=== PATIENT | female | born 1990 | race Caucasian/White ===

== ENCOUNTER 2023-09-08 11:10 | Emergency (ER) | payer OTHER, SELFPAY ==
[2023-09-08 11:15] VITALS: BP 143/95; RESP 18; TEMP 36.6; O2SAT 99; BMI 22.4
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
[2023-09-08] MEDS: IBUPROFEN 600 MG TABLET PO (12:17)
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
== END 2023-09-08 13:06 | disposition home or self-care (01) ==
PROVIDERS: Emergency Provider Emergency Medicine; PCP Family Medicine
DX: S42.191A Fracture of other part of scapula, right shoulder, initial encounter for closed fracture (principal); M25.511 Pain in right shoulder; V48.5XXA Car driver injured in noncollision transport accident in traffic accident, initial encounter
CPT/HCPCS: 73010; 73030; 99283

== ENCOUNTER 2024-05-22 11:23 | Outpatient (OUT) | payer OTHER, SELFPAY ==
--- OUTSIDE RECORDS SUMMARY | 2024-05-22 11:27 | XMS_ITS | CCD ---
Author Organization [facility] Inform ion Partnership [facility] Care Team Providers Care Drying Frame Operator Name Role Phone ELBA AZUL (FEL) Unavailable Unavailable IZABEL LOZANO, REVITAL Unavailable UnaAKASH Castorena Unavailable Unavailable TATIANA PINK Unavailable Unavailable AKASH VALENCIA Unavailable Unavailable GEMA VALENCIAENCE M Unavailable Unavailable NGUYỄN HOLLINS Unavailable Unavailable SKYLER FLOR Unavailable Unavailab AKASH Anderson Unavailable Unavailable AKASH VALENCIA M Unavailable Unavailable TATIANA PINK Unavailable Unavailable ERIKA ., DR SIMPSON Admitting Unavailable ERIKA ., DR SIMPSON Attending Unavailable ERIKA ., DR SIMPSON Primary Care Unavailable ERIKA ., DR SIMPSON Consulting Unavailable ALFRED ., DR PERALTA Admitting Unavailable ALFRED ., DR PERALTA Attending Unavailable ERIKA ., DR SIMPSON Primary Care Unavailable ALFRED ., DR PERALTA Consulting Unavailable Debbie Le Unavailable Tatiana Pink Primary Care Unavailable Yordan Garcia Attending Unavailable Yordan Garcia Admitting Unavailable Alonzo Castañeda Admitting Unavailable Alonzo Castañeda Attending Unavailable TATIANA PINK Primary Care Unavailable Medications Current Medications Medication Drug Class(es) Dates Sig (Normalized) Sig (Original) insulin degludec (1 source) Insulin Analog Tresiba Active 3 ml insulin lispro 100 unt/ml pen injector (1 source) Insulin Analog HumaLOG KwikPen 100 UNIT/ML ICR 1:5 plus ISS up to 1:25-20-15 Subcutaneous qid Active Ketorolac (1 source) Nonsteroidal Anti-inflammatory Drug, Cyclooxygenase Inhibitor Start: 11-18-2019 Toradol per 15 mg October, 30 mg Completed/Discontinued Medications Medication Drug Class(es) Dates Sig (Normalized) Sig (Original) cyclobenzaprine hydrochloride 10 mg oral tablet (1 source) Muscle Relaxant Start: 11-18-2019 take 1 tablet by mouth every eight hours Cyclobenzaprine HCl 10 MG 1 tablet as needed Orally Three times a day for 7 days October, Not-Taking methylPREDNISolone 4 mg oral tablet (1 source) Corticosteroid Start: 11-18-2019 Medrol 4 MG as directed Orally for 6 days October, Not-Taking triamcinolone acetonide 40 mg/ml injectable suspension (2 sources) Corticosteroid Start: 11-19-2022 Kenalog-40 October, 80 mg Start: 11-18-2019 KENALOG - 10 m g October, 40 mg Problems Active Problems Problem Classification Problem Date Documented Da te Episodic/Chronic Diabetes mellitus with complications (2 sources) Type 1 diabetes mellitus with hyperglycemia; Translations: [Disorder due to type 1 diabetes mellitus] Onset: 05-06-2017 Chronic Diabetes mellitus with complications (1 source) Diabetes mellitus with complications; Translations: [Type 1 diabetes mellitus with hypoglycemia without coma] Onset: 03-09-2023 Diabetes mellitus without complication (1 source) Type 1 diabetes mellitus without complications; Translations: [TYPE 1 DM WITHOUT COMPLICATIONS] Onset: 09-27-2022 Chronic Diabetes or abnormal glucose tolerance complicating ; childbirth; or the puerperium (1 source) Pre-existing type 1 diabetes mellitus, in , first trimester; Translations: [Pre-existing diabetes mellitus, type 1, in , first trimester] Chronic Nutritional deficiencies (1 source) Vitamin D deficiency; Translations: [Vitamin D deficiency, unspecified] Chronic Other aftercare (1 source) Long-term current use of insulin; 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] Episodic Other upper respiratory disease (1 source) Allergy to pollen; Translations: [Allergic rhinitis due to pollen] Chronic Other upper respiratory disease (1 source) Allergic rhinitis due to pollen Chronic Thyroid disorders (2 sources) Thyrotoxicosis, unspecified without thyrotoxic crisis or storm; Translations: [Thyrotoxicosis, unspecified without thyrotoxic crisis or storm] Onset: 05-06-2017 Chronic Past or Other Problems Problem Classification Problem Date Documented Date Episodic/Chronic Fracture of upper limb (3 sources) Displaced fracture of neck of second metacarpal bone, left hand, initial encounter for open fracture; Translations: [Fracture of unspecified phalanx of left thumb, initial encounter for open fracture] Onset: 08-06-2017 Episodic Immunizations and screening for infectious disease (1 source) Encounter for screening for human papillomavirus (HPV); Translations: [ENC SCREENING HUMAN PAPILLOMAVIRUS] Onset: 10-11-2021 Episodic Open wounds of extremities (3 sources) Unspecified open wound of left hand, initial encounter; Translations: [Laceration of intrinsic muscle, fascia and tendon of left thumb at wrist and hand level, initial encounter] Onset: 08-06-2017 Episodic Other injuries and conditions due to external causes (1 source) Unspecified injury of unspecified muscle, fascia and tendon at wrist and hand level, left hand, initial encounter; Translations: [Unspecified injury of unspecified muscle, fascia and tendon at wrist and hand level, left hand, initial encounter] Onset: 08-06-2017 Episodic Other nervous system disorders (1 source) Other acute postprocedural pain; Translations: [Other acute postprocedural pain] Onset: 08-06-2017 Episodic Other screening for suspected conditions (not mental disorders or infectious disease) (4 sources) Encounter for screening for malignant neoplasm of cervix; Translations: [ENC SCREENING MALIG NEOPLASM CERV] Onset: 10-10-2021 Episodic Results Test Name Value Interpretation Reference Range Facility Consent Formson 09-03-2023 Consent Forms [id number] [facility] Lab - Toxicology Resultson 0 09-03-2023 Lab - Toxicology Results [id number] F [facility] ED Clinical Summaryon 2023 ED Clinical Summary [facility] ? Urgent Care [address] [place] [id number] Clinical Summary PERSON INFORMATION Name: JULISA FREED Age: 33 Years Sex: FEMALE : 1990 MRN: Acct#: Visit Reason: Medical screening exam; [employer] [facility] Arrival: 09/02/2023 12:04:54 Discharge: 09/02/2023 13:05:00 LOS: 000 01:01 Check In: 09/02/2023 12:04:54 Checkout: 09/02/2023 13:05:00 Address: [address] [place] [address] [address] [facility] [address] PCP: TATIANA PINK PROVIDER INFORMATION Provider Role Assigned Unassigned Alonzo Castañeda PA-C ED PA 09/02/2023 12:12:17 Lainey RN, Yanelis ED Nurse 09/02/2023 12:28:43 VITALS INFORMATION Vital Sign Triage Latest Temperature Tympanic Temperature Temporal Artery Pulse Rate O2 Sat 98 % 98 % Respiratory Rate Blood Pressure /78 mmHg /78 mmHg MEDICAL INFORMATION Medications Given: Allergy Information: No known allergies PHYSICIAN DOCUMENTATION DISCHARGE INFORMATION: Discharge Disposition: Home Discharge Location: Home PATIENT EDUCATION INFORMATION Instructions: Follow-Up: DIAGNOSIS: Patient Understands: Yes - Patient/family/caregiver verbalizes understanding of instructions given Comment: Normal [facility] ED Patient Summaryon 024 ED Patient Summary [facility] ? Urgent Care [address] [place] [id number] PATIENT DISCHARGE INSTRUCTIONS Patient Information Name: JULISA FREED Age: 33 Years Date of : 1990 Reason For Visit: Medical screening exam; [facility] [facility] Arrival Time: 09/02/2023 12:04:54 Primary Care Physician: TATIANA PINK Attending Physician: Alonzo Castañeda PA-C Comment: Patient Education Medication Information: The exam and treatment you received today in the [facility] Emergency Department were for an urgent problem and are not intended as complete care. It is important for you to follow up with a doctor, nurse practitioner, or physician?s cable splicer assistant for ongoing care. If your symptoms become worse or you do not improve as expected and you are unable to reach your usual health care provider, you should return to the Emergency Department, we are available 24 hours a day. For those patients who have received Radiology results, the interpretation of your X-ray as given to you by our Emergency Department physician is only a preliminary report. The Radiologist will review your films and if there is a change in the diagnosis you will be notified by phone. Please make sure you have provided a working phone number so we can reach you if necessary. In the event that you had a lab culture while you were a patient in the Emergency Department, you will be notified by phone if there is a need to change your antibiotic. Please make sure you have provided a working phone number so we can reach you if necessary. [facility] Emergency Department has provided you with a complete list of medications post discharge. Please inform your american history professor/provider of your visit and for further instruction on these medications. Any specific questions regarding your chronic medications and dosages should be discussed with your primary care physician(s) and/or pharmacist. Medications to Continue That Have Not Changed Other Medications insulin degludec (Tresiba FlexTouch 100 units/mL subcutaneous solution) 34 unit(s) Subcutaneous (under the skin) every day. Visit Information Visit Diagnosis: Diagnoses This Visit Medical screening exam ([id number]) If you received any narcotics, sedation, or any other medication that causes drowsiness for the next 24 hours, unless otherwise directed: ? Do not drive a car. ? Do not operate machinery such as power tools, lawn mowers, drills, sewing machines, or stoves ? Avoid alcoholic beverages and drugs for allergies, nerves, or sleep ? Do not make important personal or business decisions or sign any legal documents Reason for Visit: Medical screening exam- pre employment physical [employer] Allergies: Substance Reaction Symptoms Type Comments No known allergies Drug Vital Signs: Vitals and Measurements this Visit (last charted value for your 09/02/2023 visit) Vital Signs This Visit Temperature Temporal: 36.4 DegC Peripheral Pulse Rate: 90 bpm Respiratory Rate: 18 br/min Systolic Blood Pressure: 120 mmHg Diastolic Blood Pressure: 78 mmHg SpO2: 98 % Blood Pressure Method: Automatic Measurements This Visit Height/Length Measured: 152.4 cm Weight Measured: 53.52 kg Weight Dosin.520 kg Body Mass Index: 23.04 kg/m2 BSA Measured: 1.51 m2 Problems List: Problem Onset Comments Diabetes Major Tests and Procedures: The following procedures and tests were performed during your ED visit. Laboratory Triage Panel 10 Urine, Collected, RT collect, 09/02/23 13:25:00 EDT, by ANA, Stop date 09/02/23 13:25:00 EDT, Lab Collect, Urine Radiology Cardiology Viruses or Bacteria What?s got you sick? Antibiotics only treat bacterial infections. Viral illnesses cannot be treated with antibiotics. When an antibiotic is not prescribed, ask your healthcare professional for tips on how to relieve symptoms and feel better. Usual Cause Illness Viruses Bacteria Antibiotic Needed Cold/Runny Nose NO Bronchitis/Chest Cold (in otherwise healthy children and adults) NO Whooping Cough Yes Flu NO Strep Throat Yes Sore Throat (except strep) NO Fluid in the middle ear (otitis media with effusion) NO Urinary Tract Infection Yes Antibiotics Aren?t Always the Answer www.cdc.gov/getsmart GET SMART Know When Antibiotics Work U.S. Department of Health and Human Services Centers for Disease Control and Prevention February 2014 [facility] Triage Panel 10on 09-02-2023 Drug Screen Complete Collected [facility] Comment on above: Performed By: #### 2 [id number] #### [facility] (DEFAULT) [address] [place] [address] Urgent Care Note- Provideron 09-02-2023 Urgent Care Note- Provider Patient: JULISA FREED Age: 33 years Sex: FEMALE : 1990 Associated Diagnoses: None Author: Alonzo Castañeda PA-C Basic Information Additional information: Chief Complaint from Nursing Triage Note : Chief Complaint 09/02/2023 12:20 EDT Chief Complaint Medical screening exam- pre employment physical [employer] . History of Present Illness Patient presents for a pre-employment physical. She is cleared for work. Exam is normal. See scanned document. GENERAL: Awake, alert and oriented to person, place and situation. Well nourished, well developed, non toxic, NAD. Moves around the department freely. EYES: Pupils equal, round and react to light. EOMI. ENMT: Ears: TM's and external canals with normal inspection bilaterally. Nose: normal inspection. Mouth: oral mucosa is pink and still moist. Throat: normal inspection. NECK: No bony TTP, normal range of motion, no meningismus, trachea is midline. No anterior or posterior lymphadenopathy. CARDIOVASCULAR: Regular rate and rhythm. +S1 +S2. No murmurs or rubs. RESPIRATORY: Clear to auscultation bilaterally without rales, rhonchi or wheeze. ABDOMEN: Soft, completely non tender, abdomen is non distended, without rebound tenderness, guarding or peritoneal signs. Bowel sounds present times 4 quadrants and normoactive. No bruits. No masses. No CVA TTP. BACK: There is no bony TTP, no scoliosis, full ROM without difficulty. EXTREMITIES: Does not have full flexion function of left index and thumb. Otherwise no cyanosis, clubbing or edema and good muscle tone, moves all other extremities fully. Squat normal. SKIN: Normal inspection, no visualized rash. NEUROLOGIC: Light touch sensation in tact, strength 5/5 in bilateral upper and lower extremities. Normal reflexes. Steady gait. Normal mentation. No focal neurological deficits appreciated. PSYCHIATRIC: Mood and affect appropriate. Health Status Allergies: Allergic Reactions (Selected) No known allergies. Medications: (Selected) Documented Medications Documented Tresiba FlexTouch 100 units/mL subcutaneous solution: 34 unit(s), Subcutaneous, Daily, 0 Refill(s). Past Medical/ Family/ Social History Medical history: No active or resolved past medical history items have been selected or recorded.. Surgical history: No active procedure history items have been selected or recorded.. Family history: No family history items have been selected or recorded.. Social history: Social & Psychosocial Habits Substance Use 09/02/2023 Substance use: Never Tobacco 09/02/2023 Smoking tobacco use: Never tobacco user Electronic Cigarette/Vaping 09/02/2023 Electronic Cigarette Use: Never . Problem list: Active Problems (1) Diabetes . Physical Examination Vital Signs Vital Signs 09/02/2023 12:20 EDT Temperature Temporal 36.4 DegC Peripheral Pulse Rate 90 bpm Respiratory Rate 18 br/min Systolic Blood Pressure 120 mmHg Diastolic Blood Pressure 78 mmHg SpO2 98 % BP Method Automatic . Measurements 09/02/2023 12:20 EDT Height 152.4 cm Weight 53.52 kg Weight Dosing 53.520 kg Body Mass Index Measured 23.04 kg/m2 BSA Measured 1.51 m2 . [Electronically Signed on: 09/02/2023 13:01 EDT] Alonzo Castañeda PA-C [Verified on: 09/02/2023 13:01 EDT] Alonzo Castañeda PA-C Normal [facility] Urgent Care [place] 024 Urgent Care Record [facility] ? Urgent Care [address] [place], [place] [id number] PATIENT DISCHARGE INSTRUCTIONS Patient Information Name: JULISA FREED Age: 33 Years Date of : 1990 Reason For Visit: Medical screening exam; [facility] [facility] Arrival Time: 09/02/2023 12:04:54 Primary Care Physician: TATIANA PINK Attending Physician: Alonzo Castañeda PA-C Comment: Visit Diagnosis: Diagnoses This Visit Medical screening exam ([id number]) If you received any narcotics, sedation, or any other medication that causes drowsiness for the next 24 hours, unless otherwise directed: ? Do not drive a car. ? Do not operate machinery such as power tools, lawn mowers, drills, sewing machines, or stoves ? Avoid alcoholic beverages and drugs for allergies, nerves, or sleep ? Do not make important personal or business decisions or sign any legal documents Medication Information: The exam and treatment you received today in the [facility] Urgent Care were for an urgent problem and are not intended as complete care. It is important for you to follow up with a doctor, nurse practitioner, or physician?s cable splicer assistant for ongoing care. If your symptoms become worse or you do not improve as expected and you are unable to reach your usual health care provider, you should return to the Emergency Department, we are available 24 hours a day. For those patients who have received Radiology results, the interpretation of your X-ray as given to you by our Urgent Care physician is only a preliminary report. The Radiologist will review your films and if there is a change in the diagnosis you will be notified by phone. Please make sure you have provided a working phone number so we can reach you if necessary. In the event that you had a lab culture while you were a patient in the Urgent Care, you will be notified by phone if there is a need to change your antibiotic. Please make sure you have provided a working phone number so we can reach you if necessary. [facility] Urgent Care has provided you with a complete list of medications post discharge. Please inform your american history professor/provider of your visit and for further instruction on these medications. Any specific questions regarding your chronic medications and dosages should be discussed with your primary care physician(s) and/or pharmacist. Medications to Continue That Have Not Changed Other Medications insulin degludec (Tresiba FlexTouch 100 units/mL subcutaneous solution) 34 unit(s) Subcutaneous (under the skin) every day. Visit Information Allergies: Substance Reaction Symptoms Type Comments No known allergies Drug Vital Signs: Vitals and Measurements this Visit (last charted value for your 09/02/2023 visit) Vital Signs This Visit Temperature Temporal: 36.4 DegC Peripheral Pulse Rate: 90 bpm Respiratory Rate: 18 br/min Systolic Blood Pressure: 120 mmHg Diastolic Blood Pressure: 78 mmHg SpO2: 98 % Blood Pressure Method: Automatic Measurements This Visit Height/Length Measured: 152.4 cm Weight Measured: 53.52 kg Weight Dosin.520 kg Body Mass Index: 23.04 kg/m2 BSA Measured: 1.51 m2 Problems List: Problem Onset Comments Diabetes Patient Education Viruses or Bacteria What?s got you sick? Antibiotics only treat bacterial infections. Viral illnesses cannot be treated with antibiotics. When an antibiotic is not prescribed, ask your healthcare professional for tips on how to relieve symptoms and feel better. Usual Cause Illness Viruses Bacteria Antibiotic Needed Cold/Runny Nose NO Bronchitis/Chest Cold (in otherwise healthy children and adults) NO Whooping Cough Yes Flu NO Strep Throat Yes Sore Throat (except strep) NO Fluid in the middle ear (otitis media with effusion) NO Urinary Tract Infection Yes Antibiotics Aren?t Always the Answer www.cdc.gov/getsmart GET SMART Know When Antibiotics Work U.S. Department of Health and Human Services Centers for Disease Control and Prevention February 2014 Normal [facility] Complete Blood Count Auto Di ffon 03-09-2023 Basophils (Bld) [#/Vol] 0.0 10*3/uL Normal 0.0-0.2 [facility] Comment on above: Result Comment: PERF ORMED BY: [address] [place] [address] PATHOLOGIST ROCKET ENGINE MECHANIC ANABELL ACE M.D. Performed By: #### C BC #### [address] Basophils/100 WBC (Bld) 0.2 % Normal . [facility] Comment on above: Performed By: #### C BC #### [address] Eosinophils (Bld) [#/Vol] 0.0 10*3/uL Normal 0.0-0.45 [facility] Comment on above: Performed By: #### C BC #### [address] Eosinophils/100 WBC (Bld) 0.1 % Normal . [facility] Comment on above: Performed By: #### C BC #### [address] Erythrocyte distribution width (RBC) [Ratio] 14.1 % Normal 11.9-15.3 [facility] Comment on above: Performed By: #### C BC #### [address] Hematocrit (Bld) [Volume fraction] 45.0 % Normal 34.0-46.4 [facility] Comment on above: Performed By: #### C BC #### [address] Hemoglobin (Bld) [Mass/Vol] 15.2 g/dL Normal 11.8-15.4 [facility] Comment on above: Performed By: #### C BC #### [address] Lymphocytes (Bld) [#/Vol] 1.7 10*3/uL Normal 1.00-4.8 [facility] Comment on above: Performed By: #### C BC #### [address] Lymphocytes/100 WBC (Bld) 13.7 % Normal . [facility] Comment on above: Performed By: #### C BC #### [address] MCH (RBC) [Entitic mass] 33.0 pg Normal 24.7-34.3 [facility] Comment on above: Performed By: #### C BC #### [facility] [address] MCV (RBC) [Entitic vol] 97.8 fL Normal 80-100 [facility] Comment on above: Performed By: #### C BC #### [facility] [address] Mean Corpuscular HGB Conc 33.7 g/dL Normal 32.0-35.0 [facility] Comment on above: Performed By: #### C BC #### [facility] [address] [place] [address] [place] Monocytes (Bld) [#/Vol] 0.6 10*3/uL Normal 0.0-0.8 [facility] Comment on above: Performed By: #### C BC #### [place] [address] [place] Monocytes/100 WBC (Bld) 16.10 % Normal 0.00-20.00 [facility] Comment on above: Performed By: #### C BC #### [place] [address] [place] Monocytes/100 WBC (Bld) 5.0 % Normal . [facility] Comment on above: Performed By: #### C BC #### [address] Neutrophils (Bld) [#/Vol] 10.2 10*3/uL High 1.8-7.7 [facility] Comment on above: Performed By: #### C BC #### [place] [address] [place] Neutrophils/100 WBC (Bld) 81.0 % Normal . [facility] Comment on above: Performed By: #### C BC #### [place] [address] [place] NRBC% 0.1 /100{WBC} Normal 0-0.5 [facility] Comment on above: Performed By: #### C BC #### [address] Platelet mean volume (Bld) [Entitic vol] 7.8 fL Normal 6.3-10.7 [facility] Comment on above: Performed By: #### C BC #### [address] Platelets (Bld) [#/Vol] 310 10*3/uL Normal 150-450 [facility] Comment on above: Performed By: #### C BC #### [address] RBC (Bld) [#/Vol] 4.60 10*6/uL Normal 3.60-5.00 [facility] Comment on above: Performed By: #### C BC #### [address] WBC (Bld) [#/Vol] 12.6 10*3/uL High 3.8-11.6 [facility] Comment on above: Performed By: #### C BC #### [address] Comprehensive Metabolic Pane david 03-09-2023 Albumin [Mass/Vol] 4.6 g/dL Normal 3.5-5.7 [facility] Comment on above: Performed By: #### C MP #### [address] Albumin/Globulin [Mass ratio] 1.4 {ratio} Normal [facility] Comment on above: Performed By: #### C MP #### [address] ALP [Catalytic activity/Vol] 71 U/L Normal 34-104 [facility] Comment on above: Performed By: #### C MP #### [address] ALT [Catalytic activity/Vol] 62 U/L High 7-52 [facility] Comment on above: Performed By: #### C MP #### [address] Anion gap [Moles/Vol] 13.1 mmol/L Normal 6.0-15.0 [facility] Comment on above: Performed By: #### C MP #### [address] AST [Catalytic activity/Vol] 72 U/L High 13-39 [facility] Comment on above: Performed By: #### C MP #### [address] Bilirubin [Mass/Vol] 0.4 mg/dL Normal 0.3-1.0 [facility] Comment on above: Performed By: #### C MP #### [address] Calcium [Mass/Vol] 9.4 mg/dL Normal 8.6-10.3 [facility] Comment on above: Performed By: #### C MP #### [address] Chloride [Moles/Vol] 105 mmol/L Normal 98-107 [facility] Comment on above: Performed By: #### C MP #### [address] CO2 [Moles/Vol] 27.8 mmol/L Normal 21.0-31.0 [facility] Comment on above: Performed By: #### C MP #### [address] Creatinine [Mass/Vol] 0.54 mg/dL Low 0.60-1.20 [facility] Comment on above: Performed By: #### C MP #### [address] Creatinine Clr Calc Pharmacy 108.43 Normal [facility] Comment on above: Result Comment: PERF ORMED BY: [place] [address] PATHOLOGIST [employer]INE MECHANIC ANABELL ACE M.D. Performed By: #### C MP #### [address] GFR/1.73 sq M.predicted MDRD (S/P/Bld) [Vol rate/Area] mL/min/{1.73_m2} Normal [facility] Comment on above: Performed By: #### C MP #### [facility] [address] Globulin (S) [Mass/Vol] 3.3 g/dL Normal [facility] Comment on above: Performed By: #### C MP #### [facility] [address] Glucose [Mass/Vol] 130 mg/dL High 70-100 [facility] Comment on above: Result Comment: [facility] Glucose Reference Range is dependent on time and content of last meal. Glucose of more than 200 mg/dL in a nonstressed, ambulatory subject supports the diagnosis of Diabetes Mellitus. ADA recommended reference range Performed By: #### C MP #### [address] Potassium [Moles/Vol] 3.9 mmol/L Normal 3.5-5.1 [facility] Comment on above: Performed By: #### C MP #### [address] Protein [Mass/Vol] 7.9 g/dL Normal 6.4-8.9 [facility] Comment on above: Performed By: #### C MP #### [place] [address] [place] Sodium [Moles/Vol] 142 mmol/L Normal 136-145 [facility] Comment on above: Performed By: #### C MP #### [place] [address] [place] Urea nitrogen [Mass/Vol] 10 mg/dL Normal 7-25 [facility] Comment on above: Performed By: #### C MP #### [place] [address] [place] Dipstick and Microscopicon 0 03-09-2023 Appearance (U) Clear Normal Clear [facility] Comment on above: Order Comment: Name Collection Type:: Clean-Voided Midstream Performed By: #### A DDONUAPLUS, CUU, UHCG #### [facility] [address] [place] [address] [place] Bacteria,Urine 1+ High None Seen [facility] Comment on above: Order Comment: Name Collection Type:: Clean-Voided Midstream Performed By: #### A DDONUAPLUS, CUU, UHCG #### [facility] [address] [place] [address] [place] Bilirubin,Urine Negative Normal Negative [facility] Comment on above: Order Comment: Name Collection Type:: Clean-Voided Midstream Performed By: #### A DDONUAPLUS, CUU, UHCG #### [facility] [address] [place] [address] [place] Color (U) Yellow Normal Yellow [facility] Comment on above: Order Comment: Name Collection Type:: Clean-Voided Midstream Performed By: #### A DDONUAPLUS, CUU, UHCG #### [facility] [address] [place] [address] [place] Glucose Ql (U) Normal Normal Normal [facility] Comment on above: Order Comment: Name Collection Type:: Clean-Voided Midstream Performed By: #### A DDONUAPLUS, CUU, UHCG #### [facility] [address] [place] [address] [place] Hyaline Casts,Urine None Seen Normal 0-8 [facility] Comment on above: Order Comment: Name Collection Type:: Clean-Voided Midstream Performed By: #### A DDONUAPLUS, CUU, UHCG #### [facility] [address] [place] [address] [place] Ketones Ql (U) Trace High Negative [facility] Comment on above: Order Comment: Name Collection Type:: Clean-Voided Midstream Performed By: #### A DDONUAPLUS, CUU, UHCG #### [facility] [address] [place] [address] [place] Leukocyte esterase Test strip Ql (U) 3+ High Negative [facility] Comment on above: Order Comment: Name Collection Type:: Clean-Voided Midstream Performed By: #### A DDONUAPLUS, CUU, UHCG #### [facility] [address] [place] [address] Mucus,Urine 4+ Critically abnormal [facility] Comment on above: Order Comment: Name Collection Type:: Clean-Voided Midstream Performed By: #### A DDONUAPLUS, CUU, UHCG #### [address] Nitrite,Urine Negative Normal Negative [facility] Comment on above: Order Comment: Name Collection Type:: Clean-Voided Midstream Performed By: #### A DDONUAPLUS, CUU, UHCG #### [address] Occult Blood,Urine Negative Normal Negative [facility] Comment on above: Order Comment: Name Collection Type:: Clean-Voided Midstream Performed By: #### A DDONUAPLUS, CUU, UHCG #### [facility] [address] [place] [address] Other Casts,Urine None Seen Normal None Seen [facility] Comment on above: Order Comment: Name Collection Type:: Clean-Voided Midstream Performed By: #### A DDONUAPLUS, CUU, UHCG #### [address] pH (U) 6.5 [pH] Normal 5.0-9.0 [facility] Comment on above: Order Comment: Name Collection Type:: Clean-Voided Midstream Performed By: #### A DDONUAPLUS, CUU, UHCG #### [facility] [address] [place] [address] Protein,Urine Negative Normal Negative [facility] Comment on above: Order Comment: Name Collection Type:: Clean-Voided Midstream Performed By: #### A DDONUAPLUS, CUU, UHCG #### [facility] [address] [place] [address] RBC LM.HPF (Urine sed) [#/Area] 0 /[HPF] Normal 0-4 [facility] Comment on above: Order Comment: Name Collection Type:: Clean-Voided Midstream Performed By: #### A DDONUAPLUS, CUU, UHCG #### [address] Specificy [place],Urine 1.011 Normal 1.001-1.030 [facility] Comment on above: Order Comment: Name Collection Type:: Clean-Voided Midstream Performed By: #### A DDONUAPLUS, CUU, UHCG #### [address] Squamous Epithelial Cell,Urine 5-9 High 0-2 [facility] Comment on above: Order Comment: Name Collection Type:: Clean-Voided Midstream Performed By: #### A DDONUAPLUS, CUU, UHCG #### [address] Urobilinogen,Urine Normal Normal Normal [facility] Comment on above: Order Comment: Name Collection Type:: Clean-Voided Midstream Performed By: #### A DDONUAPLUS, CUU, UHCG #### [address] WBC,Urine 10-19 High 0-4 [facility] Comment on above: Order Comment: Name Collection Type:: Clean-Voided Midstream Performed By: #### A DDONUAPLUS, CUU, UHCG #### [address] Glucose Poct Glucometerson 0 03-09-2023 Glucose [Mass/Vol] 148 mg/dL Normal [facility] Comment on above: Result Comment: [facility] Glucose Reference Range is dependent on time and content of last meal. Glucose of more than 200 mg/dL in a nonstressed, ambulatory subject supports the diagnosis of Diabetes Mellitus. PERFORMED BY: [place] [address] PATHOLOGIST [employer]OCKET ENGINE MECHANIC ANABELL ACE M.D. Performed By: #### G LULS #### Point of Care testing , HCG,Urineon 03-09-2023 Beta HCG ( test) Ql (U) Negative Normal [facility] Comment on above: Order Comment: Name Collection Type:: Clean-Voided Midstream Result Comment: PERF ORMED BY: [place] [address] PATHOLOGIST [employer]OCKET ENGINE MECHANIC ANABELL ACE M.D. Performed By: #### A ISA CANTU [facility] #### [facility] [address] [place], [place] [id number] [facility] Urine Cultureon 03-09-2023 Bacteria identified Cx Nom (U) ORGANISM: Enterococcus faecalis (O:ENTFAC) [place] Count 30,000 Aerobic OLLIE Charge (PCMIC38) SUSCEPTIBILITY ORGANISM: O:ENTFAC ANTIBIOTIC INTERPRETATION OLLIE Ampicillin S <2 Ciprofloxacin S <1 Daptomycin S 1 Levofloxacin S <1 Linezolid S <1 Nitrofurantoin S <32 Penicillin S 1 Tetracycline R >8 Vancomycin S 1 S = SUSCEPTIBLE I = INTERMEDIATE R = RESISTANT BLANK = DATA NOT AVAILABLE, OR DRUG NOT ADVISABLE OR TESTED R* = RESISTANCE DUE TO EXTENDED SPECTRUM BETA-LACTAMASES ESBL = EXTENDED SPECTRUM BETA-LACTAMASE TFG = THYMIDINE-DEPENDENT STRAIN NATALIE = BETA-LACTAMASE POSITIVE IB = INDUCIBLE BETA-LACTAMASE. APPEARS IN PLACE OF 'S' WITH SPECIES KNOWN TO POSSESS INDUCIBLE BETA-LACTAMASES. POTENTIALLY THEY MAY BECOME RESISTANT TO ALL B-LACTAM DRUGS. PERFORMED BY: [place] [address] PATHOLOGIST ROCKET ENGINE MECHANIC ANABELL ACE M.D. Normal [facility] Comment on above: Performed By: #### A ISA CANTU ANTHONY #### [place] [id number] [facility] CBC AUTO DIFFon 09-19-2022 BASO # 0.1 103/ul Normal 0.0-0.1 [facility] Comment on above: Performed By: #### C BC #### [facility] [address] [place] [address] Dr. Antonia Romeo Basophils/100 WBC (Bld) 0.7 % Normal 0.2-2.0 [facility] Comment on above: Performed By: #### C BC #### [facility] [address] [place] [address] Dr. Antonia Romeo EO # 0.2 103/ul Normal 0.0-0.7 [facility] Comment on above: Performed By: #### C BC #### [facility] [address] [place] [address] Dr. Antonia Romeo Eosinophils/100 WBC (Bld) 2.1 % Normal 0.9-7.0 [facility] Comment on above: Performed By: #### C BC #### [facility] [address] [place] [address] Dr. Antonia Romeo Erythrocyte distribution width (RBC) [Ratio] 13.0 % Normal 11.0-15.0 [facility] Comment on above: Performed By: #### C BC #### [facility] [address] [place] [address] Dr. Antonia Romeo Hematocrit (Bld) [Volume fraction] 43.3 % Normal 36.0-48.0 [facility] Comment on above: Performed By: #### C BC #### [facility] [address] [place] [address] Dr. Antonia Romeo Hemoglobin (Bld) [Mass/Vol] 14.3 g/dL Normal 12.0-16.0 [facility] Comment on above: Performed By: #### C BC #### [facility] [address] [place] [address] Dr. Antonia Romeo IG # 0.02 10e3/ul Normal 0.00-0.03 [facility] Comment on above: Performed By: #### C BC #### [facility] [address] [place] [address] Dr. Antonia Romeo IG % 0.3 % Normal 0.0-0.5 [facility] Comment on above: Performed By: #### C BC #### [facility] [address] [place] [address] Dr. Antonia Romeo LYMPH # 2.0 103/ul Normal 1.2-3.8 [facility] Comment on above: Performed By: #### C BC #### [facility] [address] [place] [address] Dr. Antonia Romeo Lymphocytes/100 WBC (Bld) 26.7 % Normal 20.5-60.0 [facility] Comment on above: Performed By: #### C BC #### [facility] [address] [place] [address] Dr. Antonia Romeo MANUAL DIFF REQ NO Normal [facility] Comment on above: Performed By: #### C BC #### [facility] [address] [place] [address] Dr. Antonia Romeo MCH (RBC) [Entitic mass] 30.9 pg Normal 26.7-34.0 [facility] Comment on above: Performed By: #### C BC #### [facility] [address] [place] [address] Dr. Antonia Romeo MCHC (RBC) [Mass/Vol] 33.0 g/dL Normal 29.9-35.2 [facility] Comment on above: Performed By: #### C BC #### [facility] [address] [place] [address] Dr. Antonia Romeo MCV (RBC) [Entitic vol] 93.5 fL Normal 81.0-99.0 [facility] Comment on above: Performed By: #### C BC #### [facility] [address] [place] [address] Dr. Antonia Romeo MONO # 0.5 103/ul Normal 0.3-0.8 [facility] Comment on above: Performed By: #### C BC #### [facility] [address] [place] [address] Dr. Antonia Romeo Monocytes/100 WBC (Bld) 6.0 % Normal 1.7-12.0 [facility] Comment on above: Performed By: #### C BC #### [facility] [address] [address] [address] Antonia Romeo NEUT # 4.9 103/ul Normal 1.4-6.5 [facility] Comment on above: Performed By: #### C BC #### [facility] [address] [place] [address] Dr. Antonia Romeo Neutrophils/100 WBC (Bld) 64.2 % Normal 43.0-75.0 [facility] Comment on above: Performed By: #### C BC #### [facility] [address] [place] [address] Dr. Antonia Romeo Platelet mean volume (Bld) [Entitic vol] 9.9 fL Normal 9.5-13.5 [facility] Comment on above: Performed By: #### C BC #### [facility] [address] [place] [address] Dr. Antonia Romeo PLT 309 103/ul Normal 150-450 [facility] Comment on above: Performed By: #### C BC #### [facility] [address] [place] [address] Dr. Antonia Romeo RBC 4.63 106/ul Normal 4.20-5.40 [facility] Comment on above: Performed By: #### C BC #### [facility] [address] [place] [address] Dr. Antonia Romeo WBC 7.5 103/ul Normal 4.0-11.0 [facility] Comment on above: Performed By: #### C BC #### [facility] [address] [place] [address] Dr. Antonia Romeo FREE T3on 09-19-2022 FREE T3 2.21 pg/mlL Normal 2.18-3.98 [facility] Comment on above: Performed By: #### C MP, LIPID, TSH, FT3, T4 #### [facility] [address] [place] [address] Dr. Antonia Romeo GLYCOHEMOGLOBIN A1Con 2022 ADA RECOMMENDATION SEE BELOW Normal [facility] Comment on above: Result Comment: ADA RECOMMENDED LIMIT 4.0 - 6.0 ADA THERAPEUTIC TARGET < 7.0 ACTION SUGGESTED > 7.0 Performed By: #### A 1C #### [facility] [address] [address] [address] Antonia Romeo Glucose [Mass/Vol] 263 mg/dL Normal [facility] Comment on above: Performed By: #### A 1C #### [facility] [address] [address] [address] Antonia Romeo HbA1c (Bld) [Mass fraction] 10.8 % Critically high 4.5-6.2 [facility] Comment on above: Performed By: #### A 1C #### [facility] [address] [place] [address] Dr. Antonia Romeo LIPID PROFILEon 09-19-2022 CHOL-HDL RATIO NORM SEE BELOW Normal [facility] Comment on above: Result Comment: 3.3 - 4.4 LOW RISK 4.4 - 7.1 AVERAGE RISK 7.1 - 11.0 MODERATE RISK >11.0 HIGH RISK Performed By: #### C MP, LIPID, TSH, FT3, T4 #### [facility] [address] [place] [address] Dr. Antonia Romeo Cholesterol [Mass/Vol] 181 mg/dL Normal <=200 [facility] Comment on above: Performed By: #### C MP, LIPID, TSH, FT3, T4 #### [facility] [address] [place] [address] Dr. Antonia Romeo Cholesterol in HDL [Mass/Vol] 51 mg/dL Normal 40-60 [facility] Comment on above: Performed By: #### C MP, LIPID, TSH, FT3, T4 #### [facility] [address] [place] [address] Dr. Antonia Romeo Cholesterol in LDL [Mass/Vol] 92.2 mg/dL Normal [facility] Comment on above: Performed By: #### C MP, LIPID, TSH, FT3, T4 #### [facility] [address] [place] [address] Dr. Antonia Romeo Cholesterol.total/C holesterol in HDL [Mass ratio] 3.5 {ratio} Normal [facility] Comment on above: Performed By: #### C MP, LIPID, TSH, FT3, T4 #### [facility] [address] [address] [address] Antonia Romeo HDL NORMAL > or = 60 mg/dl - LO W CARDIOVASCULAR RISK <40 mg/dl - HIGH CARDIOVASCULAR RISK Normal [facility] Comment on above: Performed By: #### C MP, LIPID, TSH, FT3, T4 #### [facility] [address] [address] [address] Antonia Romeo LDL CALC NORMAL SEE BELOW Normal [facility] Comment on above: Result Comment: <100 mg/dl OPTIMAL 100 - 129 mg/dl NEAR OR ABOVE OPTIMAL 130 - 159 mg/dl BORDERLINE HIGH 160 - 189 mg/dl HIGH >190 mg/dl VERY HIGH Performed By: #### C MP, LIPID, TSH, FT3, T4 #### [facility] [address] [address] [address] Antonia Romeo Triglyceride [Mass/Vol] 189 mg/dL Critically high <=150 [facility] Comment on above: Performed By: #### C MP, LIPID, TSH, FT3, T4 #### [facility] [address] [address] [address] Antonia Romeo VLDL CALC 37.8 mg/dL Normal [facility] Comment on above: Performed By: #### C MP, LIPID, TSH, FT3, T4 #### [facility] [address] [address] [address] Antonia Romeo PROF 14(COMP METB)on 023 Albumin [Mass/Vol] 3.9 g/dL Normal 3.4-5.0 [facility] Comment on above: Performed By: #### C MP, LIPID, TSH, FT3, T4 #### [facility] [address] [address] [address] Antonia Romeo Albumin/Globulin [Mass ratio] 1.1 {ratio} Normal [facility] Comment on above: Performed By: #### C MP, LIPID, TSH, FT3, T4 #### [facility] [address] [address] [address] Antonia Romeo ALP [Catalytic activity/Vol] 109 U/L Normal 46-116 [facility] Comment on above: Performed By: #### C MP, LIPID, TSH, FT3, T4 #### [facility] [address] [place] [address] Dr. Antonia Romeo ALT [Catalytic activity/Vol] 16 U/L Normal 14-59 [facility] Comment on above: Performed By: #### C MP, LIPID, TSH, FT3, T4 #### [facility] [address] [place] [address] Dr. Antonia Romeo Anion gap [Moles/Vol] 14.4 mmol/L Normal [facility] Comment on above: Performed By: #### C MP, LIPID, TSH, FT3, T4 #### [facility] [address] [place] [address] Dr. Antonia Romeo AST [Catalytic activity/Vol] 12 U/L Critically low 15-37 [facility] Comment on above: Performed By: #### C MP, LIPID, TSH, FT3, T4 #### [facility] [address] [place] [address] Dr. Antonia Romeo Bilirubin [Mass/Vol] 0.3 mg/dL Normal 0.2-1.0 [facility] Comment on above: Performed By: #### C MP, LIPID, TSH, FT3, T4 #### [facility] [address] [place] [address] Dr. Antonia Romeo Calcium [Mass/Vol] 9.3 mg/dL Normal 8.5-10.1 [facility] Comment on above: Performed By: #### C MP, LIPID, TSH, FT3, T4 #### [facility] [address] [place] [address] Dr. Antonia Romeo Chloride [Moles/Vol] 101 mmol/L Normal 98-107 [facility] Comment on above: Performed By: #### C MP, LIPID, TSH, FT3, T4 #### [facility] [address] [place] [address] Dr. Antonia Romeo CO2 [Moles/Vol] 28.4 mmol/L Normal 21.0-32.0 [facility] Comment on above: Performed By: #### C MP, LIPID, TSH, FT3, T4 #### [facility] [address] [place] [address] Dr. Antonia Romeo Creatinine [Mass/Vol] 0.71 mg/dL Normal 0.55-1.02 [facility] Comment on above: Performed By: #### C MP, LIPID, TSH, FT3, T4 #### [facility] [address] [place] [address] Dr. Antonia Romeo EGFR-AF CAMBODIAN >60 Normal >=60 [facility] Comment on above: Performed By: #### C MP, LIPID, TSH, FT3, T4 #### [facility] [address] [place] [address] Dr. Antonia Romeo EGFR-NON AF CAMBODIAN >60 Normal >=60 [facility] Comment on above: Performed By: #### C MP, LIPID, TSH, FT3, T4 #### [facility] [address] [place] [address] Dr. Antonia Romeo Globulin (S) [Mass/Vol] 3.5 g/dL Normal [facility] Comment on above: Performed By: #### C MP, LIPID, TSH, FT3, T4 #### [facility] [address] [place] [address] Dr. Antonia Romeo Glucose [Mass/Vol] 293 mg/dL Critically high 74-106 T [facility] Comment on above: Performed By: #### C MP, LIPID, TSH, FT3, T4 #### [facility] [address] [place] [address] Dr. Antonia Romeo Potassium [Moles/Vol] 4.8 mmol/L Normal 3.5-5.1 [facility] Comment on above: Performed By: #### C MP, LIPID, TSH, FT3, T4 #### [facility] [address] [place] [address] Dr. Antonia Romeo Protein [Mass/Vol] 7.4 g/dL Normal 6.4-8.2 [facility] Comment on above: Performed By: #### C MP, LIPID, TSH, FT3, T4 #### [facility] [address] [place] [address] Dr. Antonia Romeo Sodium [Moles/Vol] 139 mmol/L Normal 136-145 [facility] Comment on above: Performed By: #### C MP, LIPID, TSH, FT3, T4 #### [facility] [address] [place] [address] Dr. Antonia Romeo Urea nitrogen [Mass/Vol] 19.0 mg/dL Critically high 7.0-18.0 [facility] Comment on above: Performed By: #### C MP, LIPID, TSH, FT3, T4 #### [facility] [address] [place] [address] Dr. Antonia Romeo Urea nitrogen/Creatinine [Mass ratio] 26.8 mg/mg Normal [facility] Comment on above: Performed By: #### C MP, LIPID, TSH, FT3, T4 #### [facility] [address] [place] [address] Dr. Antonia Romeo T4on 09-19-2022 T4 [Mass/Vol] 6.20 ug/dL Normal 4.80-13.90 [facility] Comment on above: Performed By: #### C MP, LIPID, TSH, FT3, T4 #### [facility] [address] [place] [address] Dr. Antonia Romeo TSHon 09-19-2022 TSH 1.321 uIU/mL Normal 0.358-3.740 [facility] Comment on above: Performed By: #### C MP, LIPID, TSH, FT3, T4 #### [facility] [address] [place] [address] Dr. Antonia Romeo VITAMIN D 25 OHon 09-19-2022 VIT D 25-OH 15.8 ng/mL Normal [facility] Comment on above: Performed By: #### V ITAD #### [facility] [address] [place] [address] Dr. Antonia Romeo VIT D RANGES SEE BELOW Normal [facility] Comment on above: Result Comment: <20 ng/mL Vit D deficient 20 - <30 ng/mL Vit D insufficient 30 - 100 ng/mL Vit D sufficient >100 ng/mL Potential Toxicity Performed By: #### V ITAD #### [facility] [address] [place] [address] Dr. Antonia Romeo PAP ACOG PANEL 2: 23 to 31on 10-17-2021 . . Normal [facility] Comment on above: Performed By: #### [id number] #### [facility] [address] [place] [address] Dr. Antonia Romeo Age Gdln ACOG Testing - [facility] Comment on above: Performed By: #### [id number] #### [facility] [address] [place] [address] Dr. Antonia Romeo DIAGNOSIS: Comment [facility] Comment on above: Result Comment: NEGA TIVE FOR INTRAEPITHELIAL LESION OR MALIGNANCY. THIS SPECIMEN WAS RESCREENED PART OF OUR JUNIOR RECRU[employer] PROGRAM. Performed By: #### [id number] #### [facility] [address] [place] [address] Dr. Antonia Romeo Methodology: Comment [facility] Comment on above: Result Comment: This liquid based ThinPrep(R) pap test was screened with the use of an image guided system. Performed By: #### [id number] #### [facility] [address] [place] [address] Dr. Antonia Romeo Note: Comment [facility] Comment on above: Result Comment: The Pap smear is a screening test designed to aid in the detection of premalignant and malignant conditions of the uterine cervix. It is not a diagnostic procedure and should not be used as the sole means of detecting cervical cancer. Both false-positive and false-negative reports do occur. . Performed By: #### [id number] #### [facility] [address] [place] [address] Dr. Antonia Romeo Performed by: Comment [facility] Comment on above: Result Comment: Brian Grove Hired Hand (ASCP) Performed By: #### [id number] #### [facility] [address] [place] [address] Dr. Antonia Romeo QC reviewed by: Comment [facility] Comment on above: Result Comment: Maritza Molina, Hired Hand (ASCP) Performed By: #### [id number] #### [facility] [address] [place] [address] Dr. Antonia Romeo Reflex Criteria: Comment Normal [facility] Comment on above: Result Comment: The HPV DNA reflex criteria were not met with this specimen result therefore, no HPV testing was performed. . Performed By: #### [id number] #### [facility] [address] [address] [address] Antonia Romeo Specimen adequacy: Comment Normal [facility] Comment on above: Result Comment: Sati sfactory for evaluation. Endocervical and/or squamous metaplastic cells (endocervical component) are present. Performed By: #### [id number] #### [facility] [address] [place] [address] Dr. Antonia Romeo History and Physicalon 02-09 HIM IP Note OR Avionics Mechanic Normal [facility] OPERATIVE REPORTon 8 OPERATIVE REPORT [address] [address] OPERATIVE REPORTPATIENT NAME: JULISA FREED : 1990MED REC NO: [id number] ROOM:ACCOUNT NO: [id number] ADMIT DATE: 02/09/2018PROVIDER: Akash BainTE OF PROCEDURE: 02/09/2018ATTENDING PHYSICIAN AND SURGEON: CLAUDY AllenREOPERATIVE DIAGNOSIS: Post-traumatic scarring of left hand causingdecreased range of motion of left thumb, index and long fingers.POSTOPERATIVE DIAGNOSIS: Post-traumatic scarring of left hand causingdecreased range of motion of left thumb, index and long fingers.PROCEDURES: Extensor tenolysis of left long and index fingers and thethumb, capsulotomies of left thumb IP joint and left index and long fingerMCP joints.ANESTHESIA: MAC with local.INDICATIONS: The patient is a 28-year-old female who was involved in aninjury involving a forklift with lacerations of the extensor tendons andopen fracture of the IP joint of the thumb and damaged intrinsic muscles ofthe hand. She has undergone extensive occupational therapy and still hasextremely limited motion of the thumb, index and long fingers. Shepresents at this time for tenolysis, possible capsulotomies for improvementof motion. The procedure, the risks, the benefits were discussed with her.All questions were answered to her satisfaction. Consent was signed.NARRATIVE SUMMARY: The patient was brought to the operating suite, placedin the supine position. She was prepped and draped in the usual sterilefashion. Sedation was given per Anesthesia, but the patient was keptconscious so that she could participate in the procedure and witness theamount of motion that we were able to get. Initially, the old incision wasopened in the dorsum of the hand and extended as necessary. There wasextensive scar tissue adhering from the skin, the extensor tendons, and thelong and index metacarpals. Initial dissection was taken, elevating scartissue up off of the extensor tendons, starting at the wrist and going outdistally to just past the MCP joints.Next, attention was taken of the extensor to the long finger. This wascarefully dissected from the extensor of the index and the ring and thenelevated up off of the long metacarpal, all the way out deep to theextensor soto, superficially over the entire extensor soto over theproximal segment of the base of the proximal phalanx.Next, in similar fashion, the index extensor, both indices and communis,were dissected from the surrounding scar tissue and then carefully elevatedup off of the metacarpal, again all the way out underneath the extensorhood, over the extensor soto, and throughout the mid proximal phalanxlevel.At this point, the patient was able to extend her 2 digits better, but shewas still unable to flex them much more than preop; therefore, dissectionwas continued underneath the extensor hoods to the MCP joints. A dorsalcapsulotomy was performed first with iris scissors. This improved themotion of the MCP joint slightly. Following this, the collateral ligamentswere further divided. Then, with manipulation, the MP joints were able delores flexed now better than 90 degrees, both long and index. In addition,she now also had improved flexion of the IP joints of the fingers and wasable passively to be brought into a nice tight fist. Actively, with thepatient watching her fingers, she was able to make a loose fist and fullyextend the long finger. She was able to extend the index finger with abouta 10- to 15-degree lag at the MCP joint, but the PIP joints were straight. At this point, we completed tenolysis of the extensors to the long andindex.Next, a Chevron incision was made over the IP joint of the thumb dorsally. The skin was carefully elevated up off of the scar tissue. Again, scartissue was dissected away from the extensor tendon. The extensor tendonwas freed up from the underlying proximal phalanx out between the tendonand the IP joint onto the base of the terminal phalanx. This improvedmotion slightly. She was not able to fully extend and again not able toflex very much at all; therefore, going underneath the tendon, the dorsalcapsule was incised with iris scissors. This gave mild improvement ofmotion at the IP joint. Again, the collateral ligaments were then releasedand this gave about 70-90 degrees flexion at the IP joint of the thumb andgood functional range of motion with actually also improvement of motion atthe MCP of the thumb.At this point, Bovie cautery was used for hemostasis. Wounds were closedwith interrupted mattress sutures of 4-0 black nylon. This was dressedwith Adaptic, fluff gauze, and Kerlix wrap.Note that the patient visualized the full range of motion possible atcompletion of the tenolysis before leaving the operating room. She willcontinue working on range of motion, and she has occupational therapystarting on Friday. The patient was transferred to recovery in stablecondition.BLOOD LOSS: Minimal.SPECIMENS: None.COMPLICATIONS: None.AKASH ZAMBRANOKD: 02/09/2018 17:30:11 [id number]#: [id number] Doc#: [id number]: Normal [facility] Op Noteon 02-09-2018 HIM IP Note OR Avionics Mechanic Normal [facility] CNCOon 11-06-2017 CNCO Letter TextMay 2017Julisa Freed[address] [place] [id number]: FIRST NO SHOW NOTIFICATION LETTERDear Ms. Julisa Freed,It has come to my attention that you have missed your appointment on09/15/2017. Because you did not call our office prior to your appointment, Luiz obligated to explain our office policy on this subject.Our first concern is your health. If the endocrine issue for which you madethe appointment is still present, please reschedule soon so that you canreceive care for that problem. It is your responsibility to keep appointmentsand to alert us in a timely manner when you are unable to do so.It is important that you notify our office at [phone]; at least 2business days prior to your scheduled appointment so we may use that time tosee other patients. If our information is not correct, I would like you toplease call us so we can correct our records.Our protocol regarding patients that do not show up for appointments, fourtimes within a rolling year without calling to notify us of the cancellation,is to ask you to take immediate steps to place yourself under the care of anew line clearance foreman outside of the Department of Endocrinology, Diabetes andMetabolism at [facility] [A rolling year is defined as 12 months priorto the current date of incident].We hope that you will make every effort to keep in touch with our officeshould problems arise in your ability to follow through with scheduledappointments.Aga in, if any of this information is incorrect, I apologize in advance.Please contact The Department of Endocrinology at [phone] if you havequestions about this protocol or question the data that we have on file sothat we can delete this letter from your file if there is an error.Sincerely,[facility] Diabetes AND Metabolism Normal [facility] OPERATIVE REPORTon 8 [address]PER[address] [address] OPERATIVE REPORTPATIENT NAME: JULISA FREED : 1990MED REC NO: [id number] ROOM: 0162ACCOUNT NO: [id number] ADMIT DATE: 08/06/2017PROVIDER: Akash ZambranokDATE OF PROCEDURE: 08/06/2017ATTENDING PHYSICIAN: Emergency room.SURGEON: Akash Valencia MD MARKETING ANALYTICS SPECIALIST: FAUSTO JeffriesREOPERATIVE DIAGNOSES: Crush injury with fractures and tendon lacerationsof the left hand.POSTOPERATIVE DIAGNOSES: Crush injury with dorsal degloving of hand;transection of the EIP tendon and EDC tendon to the index finger,interosseous muscles of the index finger, and the adductor pollicis muscle;fracture of the neck of the index metacarpal; and interarticular fractureinvolving the ulnar condyle of the proximal phalanx of the thumb.PROCEDURES:1. Debridement of traumatic wound.2. ORIF of intra-articular fracture of the left thumb, proximal phalanx.3. ORIF, fracture of the neck of the left index metacarpal.4. Repair of the EDC tendon to the index finger and the EIP tendon.5. Repair of interosseous muscles x2 (interosseous of the index and theadductor pollicis).6. Closure of degloving wound.ANESTHESIA: General.INDICATIONS: The patient is a 27-year-old white female who was at workwhen her hand became pinched between a forklift and a metal rack causingthe above-listed injuries. She presented to the emergency room and wasbrought emergently to the operating room for exploration and repairs. Theprocedure, the risks, the benefits were discussed with she and family. Allquestions were answered to their satisfaction. Consent was signed.NARRATIVE SUMMARY: The patient was brought to the operating suite, placedunder general anesthetic in the supine position. The left arm was thenprepped and draped in the usual sterile fashion. Initially, devitalizedtissues were sharply debrided away. There were much blue fibers from thepatient's sweatshirt pushed through the wound, these were all removed, andthe wound was flushed out.Attention was first taken to the fractures. At the dorsal thumb, thelaceration was extended approximately 1 cm ulnarly to expose the joint. The dissection was taken just ulnar to the extensor tendon, and the jointcapsule was opened showing the fracture. The ulnar condyle of the proximalphalanx was broken off, extending into the joint. The terminal phalanx wasuninjured, and the collateral ligament was intact. At this point, thebones were brought up into apposition with good reduction being obtained. They were maintained with a lag screw of the 1.7-mm system. The skin wasclosed with interrupted mattress sutures of 4-0 black nylon.Attention was next taken to the index metacarpal. Clots and debris werecleaned for between the bone fragments, and the bone was able to be broughtup nicely into apposition. There was enough bone distally, proximal to thecartilage to allow a fixation plate; therefore, a step-ladder plate wasbrought out and laid across the fracture and secured with 5 screws ofappropriate length from the 1.7-mm fixation set. This gave good solidfixation of the fracture.Next, attention was taken to the intrinsic muscles. The index intrinsicswere repaired with interrupted umtgxc-qc-cnnfa sutures of 4-0 Vicryl. Theywere allowed to drape over the bone to hopefully isolate the tendon repairsfrom the bone. The adductor pollicis was also repaired oxumfmefxs-kh-djayr sutures.Next, attention was taken to the extensor tendons. They were brought upinto alignment and repaired with modified Roy sutures of 3-0 Surgilonand further bwhkha-qa-aflyi sutures for smoothing. Finally, the skin flapwas brought down and closed with interrupted mattress sutures of 4-0 blacknylon.After this, the patient was dressed with Adaptic, Kerlix roll, and One-Stepsplint for immobilization. The patient tolerated the procedure well andwas transferred to recovery in stable condition.AKASH ZAMBRANOKD: 08/15/2017 10:44:05 [id number]#: [id number] Doc#: [id number]: Normal [facility] Progress Noteon 08-07-2017 HIM IP Note OR Avionics Mechanic [facility] Consulton 08-06-2017 HIM IP Note OR Avionics Mechanic [facility] HIM IP Note OR Avionics Mechanic [facility] ED Noteon 08-06-2017 HIM IP Note OR Avionics Mechanic [facility] HIM IP Note OR Avionics Mechanic [facility] HIM IP Note OR Avionics Mechanic [facility] HIM IP Note OR Avionics Mechanic [facility] HIM IP Note OR Avionics Mechanic Normal [facility] HIM IP Note OR Avionics Mechanic Normal [facility] ED Provider Noteon 8 HIM IP Note OR Avionics Mechanic Normal [facility] Plan of Careon 08-06-2017 HIM IP Note OR Avionics Mechanic Normal [facility] Progress Noteon 08-06-2017 HIM IP Note OR Avionics Mechanic Normal [facility] Trauma Profileon 08-06-2017 (cont.) Normal [facility] Comment on above: Result Comment: Aver age GFR for 20-29 years old: 116 mL/min/1.73sq mChronic Kidney Disease: <60 mL/min/1.73sq mKidney failure: <15 mL/min/1.73sq meGFR calculated using average adult body mass. Additional eGFR calculator available at:http://www.Uzabase/multiple_crcl_2012.htm Performed By: #### E RTPF ####[address] [address] Anion gap 3 molar conc 13 mmol/L Normal 9-17 [facility] Comment on above: Performed By: #### E RTPF ####[address] [address] aPTT Coag time (Bld) 23.2 s Normal 20.5-30.5 [facility] Comment on above: Result Comment: NOTE : NEW REFERENCE [facility]ANGEA[facility] [address] [place] [address] Performed By: #### E RTPF ####[facility] [address] [place] [address] Chloride molar conc 100 mmol/L Normal 98-107 [facility] Comment on above: Performed By: #### E RTPF ####[facility] [address] [place] [address] CO2 molar conc 27 mmol/L Normal 20-31 [facility] Comment on above: Performed By: #### E RTPF ####[facility] [address] [place] [address] Creatinine mass conc 0.47 mg/dL Low 0.50-0.90 [facility] Comment on above: Performed By: #### E RTPF ####[id number] [place] [address] Ethanol mass conc mg/dL Normal <10 [facility] Comment on above: Performed By: #### E RTPF ####[address] [place] [address] Ethanol percent <0.010 Normal [facility] Comment on above: Performed By: #### E RTPF ####[address] [address] GFR, Amer >60 Normal >60 [facility] Comment on above: Performed By: #### E RTPF ####[address] [address] GFR,non Amer >60 Normal >60 [facility] Comment on above: Performed By: #### E RTPF ####[address] [address] Glucose mass conc 119 mg/dL High 70-99 [facility] Comment on above: Performed By: #### E RTPF ####[address] [address] INR Coag RelTime (PPP) 1.0 {INR} Normal [facility] Comment on above: Result Comment: Ther apeutic Range: Moderate Anticoagulant Intensity: INR = 2.0-3.0 High Anticoagulant Intensity: INR = 2.5-3.5 Performed By: #### E RTPF ####[address] [address] Potassium molar conc 3.9 mmol/L Normal 3.7-5.3 [facility] Comment on above: Performed By: #### E RTPF ####[address] [address] Prothrombin time (PT) Coag time (PPP) 10.7 s Normal 9.0-12.0 [facility] Comment on above: Result Comment: NOTE : NEW REFERENCE RANGE Performed By: #### E RTPF ####[address] [address] Sodium molar conc 140 mmol/L Normal 135-144 [facility] Comment on above: Performed By: #### E RTPF ####[address] [address] Urea nitrogen mass conc 16 mg/dL Normal 6-20 [facility] Comment on above: Performed By: #### E RTPF ####[address] [address] HCG Qn Negative Normal NEG [facility] Comment on above: Result Comment: Spec imens with hCG levels near the threshold of the test (25 mIU/mL) may give a negative or indeterminate result. In such cases, another test should be performed with a new specimen in 48-72 hours. If early is suspected clinically in this setting, correlation with quantitative serum b-hCG level is suggested.[employer] has confirmed the use of plasma for this test. This has not been cleared or approved by the U.S. Food and Drug Administration. The FDA has determined that such clearance is not necessary. Performed By: #### E RTPF ####[address] [address] Erythrocyte distribution width Auto Ratio (RBC) 13.2 % Normal 11.8-14.4 [facility] Comment on above: Performed By: #### E RTPF ####[address] [address] Hematocrit Auto Volume Fraction (Bld) 39.7 % Normal 36.3-47.1 [facility] Comment on above: Performed By: #### E RTPF ####[address] [address] Hemoglobin mass conc (Bld) 12.9 g/dL Normal 11.9-15.1 [facility] Comment on above: Performed By: #### E RTPF ####[address] [address] MCH Auto Entitic mass (RBC) 30.5 pg Normal 25.2-33.5 [facility] Comment on above: Performed By: #### E RTPF ####[address] [address] MCHC Auto mass conc (RBC) 32.5 g/dL Normal 28.4-34.8 [facility] Comment on above: Performed By: #### E RTPF ####[address] [address] MCV Auto Entitic volume (RBC) 93.9 fL Normal 82.6-102.9 [facility] Comment on above: Performed By: #### E RTPF ####[address] [address] NRBC Automated 0.0 per 100 WBC Normal 0.0 [facility] Comment on above: Performed By: #### E RTPF ####[address] [address] Platelet mean volume Auto Entitic volume (Bld) 9.8 fL Normal 8.1-13.5 [facility] Comment on above: Performed By: #### E RTPF ####[address] [address] Platelets Auto #/vol (Bld) 227 10*3/uL Normal 138-453 [facility] Comment on above: Performed By: #### E RTPF ####[address] [address] RBC Auto #/vol (Bld) 4.23 10*6/uL Normal 3.95-5.11 [facility] Comment on above: Performed By: #### E RTPF ####[address] [address] WBC Auto #/vol (Bld) 8.8 10*3/uL Normal 3.5-11.3 [facility] Comment on above: Performed By: #### E RTPF ####[address] [address] Staging: NOT REPORTED Normal [facility] Comment on above: Performed By: #### E RTPF ####[address] [address] Blood Bank BILL FOR SERVICES PERFORMED Normal [facility] Comment on above: Performed By: #### E RTPF ####[address] [address] Type + Screenon 08-06-2017 Type + Screen Sample Expiration 08/09/2017 Arm Band Number [id number] ABO/Rh(D) O POSITIVE Antibody Screen NEGATIVE [address] [address] Normal [facility] Comment on above: Performed By: #### T YS ####[address] [address] XR HAND LEFT (MIN 3 VIEWS)on 08-06-2017 XR HAND LEFT (MIN 3 VIEWS) EXAMINATION:3 VIEWS OF THE LEFT HAND; VIEWS OF THE LEFT WRIST08/06/2017 12:05 pmCOMPARISON:None.HISTORY :ORDERING SYSTEM PROVIDED HISTORY: deglovingTECHNOLOGIST PROVIDED HISTORY:Reason for exam:->deglovingFINDINGS: Left wrist: No focal soft tissue swelling. No acute fracture or dislocation.Left hand: There is bandage material overlying the hand, which limitsdetailed assessment of the soft tissues. There are several punctateradiodensities overlying the soft tissues in the 1st, 2nd, and 3rd digits,but it is uncertain if these are in the soft tissues or bandage material.Some of the radiodensities appear to be along the skin surface. Assessmentfor soft tissue gas is limited. There is a comminuted fracture of the 2ndmetacarpal neck without significant displacement. There is also anondisplaced fracture at the 3rd metacarpal base. There is a mildlydistracted (approximately 2 mm) intra-articular fracture at the distal aspectof the 1st proximal phalanx. There is also a mildly comminuted nondisplacedintra-articul ar fracture at the base of the 1st distal phalanx.IMPRESSION: Left wrist: No acute osseous abnormality.Left hand:1. Bandage material limits detailed assessment of the soft tissues. Thereare several punctate radiodensities overlying the 1st, 2nd, and 3rd digits,which could be foreign bodies versus densities in the bandage material or onthe surface of the skin.2. Comminuted nondisplaced fracture at the 2nd metacarpal neck.3. Nondisplaced fracture at the base of the 3rd metacarpal4. Mildly distracted intra-articular fracture at the distal aspect of the1st proximal phalanx.5. Comminuted nondisplaced fracture of the base of the 1st distal phalanx.6. Please correlate clinically for possibility that these may be openfractures, given history.Interpreted by:Serina Vasquez, DOSigned by:Serina Vasquez, DO18Final result Normal [facility] XR WRIST LEFT (MIN 3 VIEWS)o n 08-06-2017 XR WRIST LEFT (MIN 3 VIEWS) EXAMINATION:3 VIEWS OF THE LEFT HAND; VIEWS OF THE LEFT WRIST08/06/2017 12:05 pmCOMPARISON:None.HISTORY :ORDERING SYSTEM PROVIDED HISTORY: deglovingTECHNOLOGIST PROVIDED HISTORY:Reason for exam:->deglovingFINDINGS: Left wrist: No focal soft tissue swelling. No acute fracture or dislocation.Left hand: There is bandage material overlying the hand, which limitsdetailed assessment of the soft tissues. There are several punctateradiodensities overlying the soft tissues in the 1st, 2nd, and 3rd digits,but it is uncertain if these are in the soft tissues or bandage material.Some of the radiodensities appear to be along the skin surface. Assessmentfor soft tissue gas is limited. There is a comminuted fracture of the 2ndmetacarpal neck without significant displacement. There is also anondisplaced fracture at the 3rd metacarpal base. There is a mildlydistracted (approximately 2 mm) intra-articular fracture at the distal aspectof the 1st proximal phalanx. There is also a mildly comminuted nondisplacedintra-articul ar fracture at the base of the 1st distal phalanx.IMPRESSION: Left wrist: No acute osseous abnormality.Left hand:1. Bandage material limits detailed assessment of the soft tissues. Thereare several punctate radiodensities overlying the 1st, 2nd, and 3rd digits,which could be foreign bodies versus densities in the bandage material or onthe surface of the skin.2. Comminuted nondisplaced fracture at the 2nd metacarpal neck.3. Nondisplaced fracture at the base of the 3rd metacarpal4. Mildly distracted intra-articular fracture at the distal aspect of the1st proximal phalanx.5. Comminuted nondisplaced fracture of the base of the 1st distal phalanx.6. Please correlate clinically for possibility that these may be openfractures, given history.Interpreted by:Serina Vasquez, DOSigned by:Serina Vasquez DO08/06/17inal result Normal [facility] OBSOLETEon 05-08-2017 OBSOLETE Refill (ENDOMN) ALLYSSA FREED ([id number]) 1990 FDate Time Provider Dirhmnlbpn48/16/17 ELBA AZUL) ENDOMN During your visit today, we recorded the following information about you:Allergies As of Date: 05/08/2017(No Known Allergies)Date Reviewed: 05/06/2017Reviewed by: Kemi San Ma - Fully AssessedReason for Visit: Refill Request [94]Order(s):insulin degludec (TRESIBA) 100 unit/mL (3 mL) injectionInject 30 Units subcutaneously every 24 hours.Disp: 3 PenRfl: 3Prescriptions as of 05/08/2017 Sig: INSULIN DEGLUDEC 100 UNIT/ML * Inject 30 Units subcutaneousl* INSULIN LISPRO 100 UNIT/ML JIMENEZ* Indications: TYPE 1 DIABETES * INSULIN NPH HUMAN RECOMB 100 * Take 16 units NPH insuline * LEVEMIR FLEXPEN SUBCUTANEOUS Inject subcutaneously. SERTRALINE 100 MG TABLET Take 100 mg by mouth once richar* PEN NEEDLE, DIABETIC 31 GAUGE* USE WITH INSULIN PEN four andreia*Problem List As Of Date: 05/08/2017(None)Prescript ions ordered this encounter Disp Refills Start End INSULIN DEGLUDEC 100 UNIT/ML (3 ML) * 3 Pen 3 05/08/2017 Route: SUBCUTANEOUS Sig: Inject 30 Units subcutaneously every 24 hours.Medications Discontinued During This Encounter insulin glargine (TOUJEO) 300 unit/m* 3 Pen 11 05/06/2017 05/08/2017 Route: SUBCUTANEOUS Sig: Inject 30 Units subcutaneously every 24 hours. Disc: Reason for discontinue is not on file. Status:Closed by ELBA AZUL MD on 05/08/17 [facility] CNOVon 05-06-2017 CNOV Office Visit (ENDOMN) ALLYSSA FREED ([id number]) 1990 FDate Time Provider Jibcnjkrch75/14/17 8:45 AM ELBA AZUL) ENDOMELISSA During your visit today, we recorded the following information about you: Pulse Blood pressure Weight Height 125/minute 103/62 49.9 kg 1.579 eLroy San Ma 05/06/2017 8:50 AM AddendumThank you for choosing the [facility] Department of Endocrinology,Diabetes and Metabolism. Being able to provide excellent health care hasallowed us to be # 3 in the country according to USNews ANDamp; World Report.Did you know that you need to call 48 hours in advance of your scheduled visit,if you are unable to make your appointment? [facility] thanks you for your commitment, because patients not showing to theirappointment results in a lost opportunity for patients to receive [facility] care at the [facility].To Cancel an appointment, please choose one of the following: - Call the Appointment Call Center at [phone] - From [facility], Go to Appointments ? Cancel ApptsIf cancelling, consider your need to reschedule to prevent further delays inyour care.To Schedule an appointment, please choose one of the following: - Call the Appointment Call Center at [phone] - From [facility], Go to Appointments ? Request an Appt1. Please get lab work done today2. Please stop the levemir and start Toujeo 30 units once a day at bedtime3. Please check your BG before meals and at bedtime and bring your glucometerwith you to the next office visit4. I will call you with the results5. Please follow up in 4 monthsRevianey Lozano MD 05/06/2017 4:56 PM SignedEndocrinology Initial AssessmentJulisa Freed is here for a consultation upon the request of selfregarding:Hyperthyroi dism and DM type 1PCP is Angelito Reagan MD[address] [place] [address]Zoqte: [phone]: [phone] History of Present IllnessJulisa Freed is a 27 year old female with PMH of DM type 1 (since age 11)who presents today for evaluation of hyperthyroidism.She has had four pregnancies - 1st child stillborn, second terminated due toabnormality and third miscarriage at 8 weeksFourth child - delivered a baby girl - 10/28/2016Weight: 8'10'' - no complications during pregnancyType 1 DMUncontrolled - last HbA1c: 10.9% (01/2017)No diabetic complicationsFHx of diabetes in her father and paternal grandfather, uncles and cousins (allDM1)Managed by here PCP and by [facility] during herpregnancyDiagnosed at age of 11Was on insulin pump during first - had still - is notinterested in restarting pumpCurrently on: levemir 22 units in AM and 16 units in PM, Humalog 1:CHO 1:10grams + SSI #1 with mealsUses insulin pensOccasional low BG - mainly in AMWorks as a Forklift driverChecks BG before meals - rarely at bedtimeRange between 60 - 250Fastin- 120Before meals rarely has lows# DKA in pastHyperthyroidism:Never been on thyroid medicationRecent delivery 10/2016FHx: maternal grandmother had a partial thyroidectomy for goiterNo hx of radiaitonNo recent contrastUnsure if checked TSH prior to pregnancyNoted significant weight and hair loss after deliveryWeight loss: 41 pounds over 6 monthsPCP checked her TFT and found to be hyperthyroidDenies any significant tremorHas chronic mild palpitations and tremorsNo neck pain, ear pain, SOB, diarrhea, N/VQuick thyroid US in office: mild increased vascularization, goiter, no nodulesLabs 01/2017Thyroid Antibody: 29 IU/ml (ANDlt;14.4)FT4: 4.26TT3: 10.9 (5.53-11)Hba1c: 10.4%TSH: ANDlt; 0.015Repeat : 0.138 Past History, Medications, AllergiesPAST MEDICAL HISTORYDiagnosis Date- Diabetes mellitus type 1 (HCC)- HyperthyroidismPAST SURGICAL HISTORYProcedure Laterality Date- NONECurrent Outpatient Prescriptions:insulin lispro (HUMALOG) 100 unit/mL injection Indications: TYPE 1 DIABETESMELLITUS. 1 unit/10 grams carbs Disp: Rfl:Insulin NPH human ( NOVOLIN N, HUMULIN N) 100 unit/mL (3 mL) inpn injection penTake 16 units NPH insuline with BF in am and 8 units ant night at 21.00 (HS)Disp: Rfl:INSULIN DETEMIR (LEVEMIR FLEXPEN SUBCUTANEOUS) Inject subcutaneously. Disp:Rfl:sertraline (ZOLOFT) 100 mg tablet Take 100 mg by mouth once daily. Disp: Rfl:insulin glargine (TOUJEO) 300 unit/mL (1.5 mL) inpn Inject 30 Unitssubcutaneously every 24 hours. Disp: 3 Pen Rfl: 11Insulin [place], Disposable, (BD ULTRAFINE III MINI PEN) 31 gauge x 3/16ANDquot;ndle USE WITH INSULIN PEN four times a day Disp: 360 Each Rfl: 11No current facility-administered medications for this visit.ALLERGIESNo Known AllergiesFAMILY HISTORYProblem Relation Age of Onset- goiter [OTHER] Maternal Grandmother- Diabetes type 1 [OTHER] Paternal Grandfather- Diabetes type 1 [OTHER] Other Paternal uncle and cousinsSocial History Marital status: Spouse name: Years of education: Number of children:Occupational HistoryOccupation Employer Commentforklift driverSocial History Main Topics Smoking status: Current Every Day Smoker Packs/day: 1.00 Years: 0.00 Types: Cigarettes Smokeless status: Never Used Comment: half pack daily Alcohol use: Yes 1.5 oz/week 1 Cans of Beer (12oz) per week Comment: drinks once a month Drug use: No Review of SystemsThyroid Pain: noMass Effect: NoneEnergy: stable and OKMoods: goodSleep: Normal sleep patternTemp. Intolerance: NoneCardiac: NOT SIGNIFICANTCV: Occasional palpationsResp: No cough, hemoptysis, asthma, recent chest infection, wheezingGI: No blood in stool, pain with BM, tarry stool, persistent diarrhea orconstipationWeight: decreased, 40 pounds over 6 monthsEyes: No, Dryness, Itching, tearing and diplopiaMemory: GoodDiaphoresis: Not significantSkin: NegativeM/S: negativeNeuro: negative, migraine headaches, syncope, seizures, dizziness Physical examinationBP 103/62 (BP Site: Left Arm, BP Position: Sitting, BP Cuff Size: RegularAdult) Pulse (!) 125 Ht 157.9 cm (5' 2.17ANDquot;) Wt 49.9 kg (109 lb 14.4oz) LMP (LMP Unknown) ? Unknown BMI 19.99 kg/b4WVYSVJY: Well nourished, thin, well hydrated, in no distress and oriented x 3COMMUNICATION: Hearing: normal; VOICE: normalEYES: no thyroid eye signs, CONNER, Fundi normal and cornea normalNECK: no visible nodules or goiter, no bruit, no tenderness and no adenopathiesTHYROID: enlarged, smooth, non-tender, 20 gram, firm and No palpable nodulesHeart RRR with normal S1 and N5Oqovj clear to auscultationAbdomen bowel sounds normoactive, soft, non-tender, non-distendedEXTREMITIES: No clubbing, no edema, no cyanosis and normal nailsNEURO: normal strength, no tremor and normal reflexes Previous Laboratory ResultsLabs 01/2017Thyroid Antibody: 29 IU/ml (ANDlt;14.4)FT4: 4.26TT3: 10.9 (5.53-11)Hba1c: 10.4%TSH: ANDlt; 0.015Repeat : 0.138 ImagingQuick thyroid US in office: mild increased vascularization, goiter, no nodules Impression/Recommendation Leeann Freed is a 27 year old female with PMH of DM type 1 (since age 11)who presents today for evaluation of hyperthyroidism.1. Hyperthyroidism:-- Clinically euthyroid other than weight loss-- No previous hx of thyroid disease, but patient has DM type 1 and is atincreased risk of autoimmune disease-- Unclear of thyroiditis vs underlying Graves' disease-- Will recheck TFT with TPO and TRab-- Uptake scan if TSH still suppressed-- Quick thyroid US in office: mild increased vascularization, goiter, nonodules2. Uncontrolled Type 1 DM with last HbA1c: 10.9% (01/2017)-- No diabetic complications-- Having hypoglycemic episodes mainly in AM - requirements likely decreasedgiven weight loss-- Managed by her PCP-- Will recommend the following: -- Change levemir to toujeo 30 units at bedtime (20% reduction in dose) -- Toujeo will hopefully decrease DKA episodes and hypoglycemic episodes -- Continue with Humalog I:CHO ratio of 1 unit :10 grams of CHO + SSI # 1 withmeals -- Managed by here PCP and by [facility] at [facility] during herpregnancy-- Not interested in insulin pump (was on insulin pump during first -had still )-- Advised to check her BG before meals and at bedtime and write it down in alogbook and bring it with her to the next office visit-- Also counseled to ensure she is not low while driving the fork liftCase discussed with attending staff, addendum to follow.The patient will follow up in 3 months if TFT WNL, or one week if abnromal.Elba King MDEndocrinology FellowPager: [phone] Staff:I have reviewed the progress note obtained and documented by the fellow and Ipersonally participated in the young components. I have discussed the case andmanagement of the patient's care with the fellow. I agree with their note.Additional modifications are as follows.Possible thyroiditis vs. Graves. Will check labs as written above, consideruptake and scan.Also agree with adjustments to the insulin and she will record her sugars inthe log book provided.Will have her come back soon.Revwilner Lozano, EARLefstefanie Provider: SELF [200]Allergies As of Date: 05/06/2017(No Known Allergies)Date Reviewed: 05/06/2017Reviewed by: Kemi San Ma - Fully AssessedReason for Visit: Thyroid Problem [110]Primary Visit Diagnosis:Hyperthyroidism [E05.90] Other Visit Diagnosis:Diabetes mellitus type 1, uncontrolled, without complications (HCC) [E10.65]Order(s):TSH BLD [SQTSH] Order #: [id number] FUTURE T4 FREE/FREE THYROX [SQFT4] Order #: [id number] FUTURE T3 FREE BLD [SQFREET3] Order #: [id number] FUTURE TSH RECEPTOR AB [SQTRAB] Order #: [id number] FUTURE THYROID PEROXIDASE ANTIBODY BLOOD [SQMICRO] Order #: [id number] FUTURE HGB A1C [GWGSH6F] Order #: [id number] FUTURE insulin glargine (TOUJEO) 300 unit/mL (1.5 mL) inpnInject 30 Units subcutaneously every 24 hours.Disp: 3 PenRfl: 11 Insulin [place], Disposable, (BD ULTRAFINE III MINI PEN) 31 gauge x 3/16 ndleUSE WITH INSULIN PEN four times a dayDisp: 360 EachRfl: 11Prescriptions as of 05/06/2017 Sig: INSULIN LISPRO 100 UNIT/ML JIMENEZ* Indications: TYPE 1 DIABETES * INSULIN NPH HUMAN RECOMB 100 * Take 16 units NPH insuline * LEVEMIR FLEXPEN SUBCUTANEOUS Inject subcutaneously. SERTRALINE 100 MG TABLET Take 100 mg by mouth once richar* INSULIN GLARGINE 300 UNIT/ML * Inject 30 Units subcutaneousl* PEN NEEDLE, DIABETIC 31 GAUGE* USE WITH INSULIN PEN four andreia*Medication notes this encounter INSULIN LISPRO 100 UNIT/ML SUBCUTANEOUS SOLUTION >> Kemi San Ma 05/06/2017 8:48 AM >> KEMI SAN MA May 06, 2017 8:48 AM Received from: [facility] INSULIN NPH HUMAN RECOMB 100 UNIT/ML (3 ML) SUBCUTANEOUS PEN >> Kemi San Ma 05/06/2017 8:48 AM >> KEMI SAN MA May 06, 2017 8:48 AM Received from: [facility] List As Of Date: 05/06/2017(None) Other instructions from your clinician: Thank you for choosing the [facility] Department of Endocrinology, Diabetes and Metabolism. Being able to provide excellent health care has allowed us to be # 3 in the country according to USNews AND World Report. Did you know that you need to call 48 hours in advance of your scheduled visit, if you are unable to make your appointment? The [facility] [place] thanks you for your commitment, because patients not showing to their appointment results in a lost opportunity for patients to receive world class health care at the [facility]. To Cancel an appointment, please choose one of the following: - Call the Appointment Call Center at [phone] - From [facility], Go to Appointments ? Cancel Appts If cancelling, consider your need to reschedule to prevent further delays in your care. To Schedule an appointment, please choose one of the following: - Call the Appointment Call Center at [phone] - From [facility], Go to Appointments ? Request an Appt 1. Please get lab work done today 2. Please stop the levemir and start Toujeo 30 units once a day at bedtime 3. Please check your BG before meals and at bedtime and bring your glucometer with you to the next office visit 4. I will call you with the results 5. Please follow up in 4 monthsPrescriptions ordered this encounter Disp Refills Start End INSULIN GLARGINE 300 UNIT/ML (1.5 ML* 3 Pen 11 05/06/2017 Route: SUBCUTANEOUS Sig: Inject 30 Units subcutaneously every 24 hours. PEN NEEDLE, DIABETIC 31 GAUGE X /16 360 * 11 05/06/2017 Sig: USE WITH INSULIN PEN four times a dayDisposition: Return in about 4 months (around 09/03/2017) for DM and thyroid.Follow-up and Disposition History RecordedLetter TextDepartment of Endocrinology, Diabetes and Metabolism / F20 [address] FerrerReub[place], [place] [address]Jnn Ambrose King MD Office: [phone]: [phone] 14, 2017TO WHOM IT MAY CONCERN:This is to certify that Mrs. Julisa Freed has been seen today, 05/06/2017at [facility].Sincerely yours,Elba King MDEncounter Number: [id number] Status:Closed by MYRIAM LORA MD on 05/06/17 Normal [facility] Free T3on 05-06-2017 Triiodothyronine (T3) free 3.6 pg/mL Normal 2.3-4.1 [facility] Comment on above: Performed By: #### T SH, FREET3, FT4, HBA1C, MICRO, TRAB ####[facility] [address] [place], [place] [phone] Free T4on 05-06-2017 Thyroxine (T4) free 1.3 ng/dL Normal 0.9-1.7 [facility] Comment on above: Performed By: #### T SH, FREET3, FT4, HBA1C, MICRO, TRAB ####[facility] [address] [place], [place] [phone] Hemoglobin A1con 05-06-2017 Glucose mass conc mg/dL Normal [facility] Comment on above: Result Comment: eAG: (Estimated average glucose) is a calculated value from HgbA1c and is insurance follow up representative of the average blood glucose level in the last 2-3 month period. Performed By: #### T SH, FREET3, FT4, HBA1C, MICRO, TRAB ####[facility] [address] [place], [place] [phone] Hemoglobin A1c/Hemoglobin.tota l mass fraction (Bld) 10.3 % High 4.3-5.6 [facility] Comment on above: Result Comment: Hamzah ican Diabetes Association guidelines indicate that patients with HgbA1c in the range 5.7-6.4% are at increased risk for development of diabetes, and intervention by lifestyle modification may be beneficial. HgbA1c greater or equal to 6.5% is considered diagnostic of diabetes. Performed By: #### T SH, FREET3, FT4, HBA1C, MICRO, TRAB ####[facility] [address] [place], [place] [phone] PROGRESSon 05-06-2017 PROGRESS HNO ID: [id number] thor: Myriam Phillip BaskinService: (none)Author Type: PhysicianType: Progress NotesFiled: 05/06/2017 4:56 PMNote Text:Endocrinology Initial AssessmentJulisa Freed is here for a consultation upon the request of selfregarding:Hyperthyroi dism and DM type 1PCP is Angelito Reagan MD[address] [place] [address]Qrmrm: [phone]: [phone] History of Present IllnessJulisa Freed is a 27 year old female with PMH of DM type 1 (since age11) who presents today for evaluation of hyperthyroidism.She has had four pregnancies - 1st child stillborn, second terminated dueto abnormality and third miscarriage at 8 weeksFourth child - delivered a baby girl - 10/28/2016Weight: 8'10'' - no complications during pregnancyType 1 DMUncontrolled - last HbA1c: 10.9% (01/2017)No diabetic complicationsFHx of diabetes in her father and paternal grandfather, uncles and cousins(all DM1)Managed by here PCP and by [facility] medicine at [facility] during herpregnancyDiagnosed at age of 11Was on insulin pump during first - had still - is notinterested in restarting pumpCurrently on: levemir 22 units in AM and 16 units in PM, Humalog 1:CHO1:10 grams + SSI #1 with mealsUses insulin pensOccasional low BG - mainly in AMWorks as a Forklift driverChecks BG before meals - rarely at bedtimeRange between 60 - 250Fastin- 120Before meals rarely has lows# DKA in pastHyperthyroidism:Never been on thyroid medicationRecent delivery 10/2016FHx: maternal grandmother had a partial thyroidectomy for goiterNo hx of radiaitonNo recent contrastUnsure if checked TSH prior to pregnancyNoted significant weight and hair loss after deliveryWeight loss: 41 pounds over 6 monthsPCP checked her TFT and found to be hyperthyroidDenies any significant tremorHas chronic mild palpitations and tremorsNo neck pain, ear pain, SOB, diarrhea, N/VQuick thyroid US in office: mild increased vascularization, goiter, nonodulesLabs 01/2017Thyroid Antibody: 29 IU/ml (<14.4)FT4: 4.26TT3: 10.9 (5.53-11)Hba1c: 10.4%TSH: < 0.015Repeat : 0.138 Past History, Medications, AllergiesPAST MEDICAL HISTORYDiagnosis Date- Diabetes mellitus type 1 (HCC)- HyperthyroidismPAST SURGICAL HISTORYProcedure Laterality Date- NONECurrent Outpatient Prescriptions:insulin lispro (HUMALOG) 100 unit/mL injection Indications: TYPE 1DIABETES MELLITUS. 1 unit/10 grams carbs Disp: Rfl:Insulin NPH human ( NOVOLIN N, HUMULIN N) 100 unit/mL (3 mL) inpninjection pen Take 16 units NPH insuline with BF in am and 8 units antnight at 21.00 (HS) Disp: Rfl:INSULIN DETEMIR (LEVEMIR FLEXPEN SUBCUTANEOUS) Inject subcutaneously.Disp: Rfl:sertraline (ZOLOFT) 100 mg tablet Take 100 mg by mouth once daily. Disp:Rfl:insulin glargine (TOUJEO) 300 unit/mL (1.5 mL) inpn Inject 30 Unitssubcutaneously every 24 hours. Disp: 3 Pen Rfl: 11Insulin [place], Disposable, (BD ULTRAFINE III MINI PEN) 31 gauge x 3/16 ndle USE WITH INSULIN PEN four times a day Disp: 360 Each Rfl: 11No current facility-administered medications for this visit.ALLERGIESNo Known AllergiesFAMILY HISTORYProblem Relation Age of Onset- goiter [OTHER] Maternal Grandmother- Diabetes type 1 [OTHER] Paternal Grandfather- Diabetes type 1 [OTHER] Other Paternal uncle and cousinsSocial History Marital status: Spouse name: Years of education: Number of children:Occupational HistoryOccupation Employer Commentforklift driverSocial History Main Topics Smoking status: Current Every Day Smoker Packs/day: 1.00 Years: 0.00 Types: Cigarettes Smokeless status: Never Used Comment: half pack daily Alcohol use: Yes 1.5 oz/week 1 Cans of Beer (12oz) per week Comment: drinks once a month Drug use: No Review of SystemsThyroid Pain: noMass Effect: NoneEnergy: stable and OKMoods: goodSleep: Normal sleep patternTemp. Intolerance: NoneCardiac: NOT SIGNIFICANTCV: Occasional palpationsResp: No cough, hemoptysis, asthma, recent chest infection, wheezingGI: No blood in stool, pain with BM, tarry stool, persistent diarrhea orconstipationWeight: decreased, 40 pounds over 6 monthsEyes: No, Dryness, Itching, tearing and diplopiaMemory: GoodDiaphoresis: Not significantSkin: NegativeM/S: negativeNeuro: negative, migraine headaches, syncope, seizures, dizziness Physical examinationBP 103/62 (BP Site: Left Arm, BP Position: Sitting, BP Cuff Size: RegularAdult) Pulse (!) 125 Ht 157.9 cm (5' 2.17 ) Wt 49.9 kg (109 lb 14.4oz) LMP (LMP Unknown) ? Unknown BMI 19.99 kg/u8IVJYKVU: Well nourished, thin, well hydrated, in no distress and orientedx 3COMMUNICATION: Hearing: normal; VOICE: normalEYES: no thyroid eye signs, CONNER, Fundi normal and cornea normalNECK: no visible nodules or goiter, no bruit, no tenderness and noadenopathiesTHYROID: enlarged, smooth, non-tender, 20 gram, firm and No palpablenodulesHeart RRR with normal S1 and A1Oginl clear to auscultationAbdomen bowel sounds normoactive, soft, non-tender, non-distendedEXTREMITIES: No clubbing, no edema, no cyanosis and normal nailsNEURO: normal strength, no tremor and normal reflexes Previous Laboratory ResultsLabs 01/2017Thyroid Antibody: 29 IU/ml (<14.4)FT4: 4.26TT3: 10.9 (5.53-11)Hba1c: 10.4%TSH: < 0.015Repeat : 0.138 ImagingQuick thyroid US in office: mild increased vascularization, goiter, nonodules Impression/Recommendation Leeann Freed is a 27 year old female with PMH of DM type 1 (since age11) who presents today for evaluation of hyperthyroidism.1. Hyperthyroidism:-- Clinically euthyroid other than weight loss-- No previous hx of thyroid disease, but patient has DM type 1 and is atincreased risk of autoimmune disease-- Unclear of thyroiditis vs underlying Graves' disease-- Will recheck TFT with TPO and TRab-- Uptake scan if TSH still suppressed-- Quick thyroid US in office: mild increased vascularization, goiter, nonodules2. Uncontrolled Type 1 DM with last HbA1c: 10.9% (01/2017)-- No diabetic complications-- Having hypoglycemic episodes mainly in AM - requirements likelydecreased given weight loss-- Managed by her PCP-- Will recommend the following: -- Change levemir to toujeo 30 units at bedtime (20% reduction in dose) -- Toujeo will hopefully decrease DKA episodes and hypoglycemic episodes -- Continue with Humalog I:CHO ratio of 1 unit :10 grams of CHO + SSI # 1with meals -- Managed by here PCP and by maternal medicine at [facility] duringher -- Not interested in insulin pump (was on insulin pump during firstpregnancy - had still )-- Advised to check her BG before meals and at bedtime and write it downin a logbook and bring it with her to the next office visit-- Also counseled to ensure she is not low while driving the fork liftCase discussed with attending staff, addendum to follow.The patient will follow up in 3 months if TFT WNL, or one week ifabnromal.Elba King MDEndocrinology FellowPager: [phone] Staff:I have reviewed the progress note obtained and documented by the fellowand I personally participated in the young components. I have discussed thecase and management of the patient's care with the fellow. I agree withtheir note. Additional modifications are as follows.Possible thyroiditis vs. Graves. Will check labs as written above,consider uptake and scan.Also agree with adjustments to the insulin and she will record her sugarsin the log book provided.Will have her come back soon.Myriam Loazno MD Normal [facility] TPO Antibodyon 05-06-2017 TPO Antibody 1038.0 IU/mL High <5.6 [facility] Comment on above: Result Comment: Resu lt rechecked. Performed By: #### T SH, FREET3, FT4, HBA1C, MICRO, TRAB ####[facility] [place], [place] [phone] TSHon 05-06-2017 Thyroid stimulating hormone (TSH) 0.013 uU/mL Low 0.400-5.500 [facility] Comment on above: Result Comment: If t he patient is , TSH reference range varies by gestational period:First Trimester 0.100-2.500 uU/mLSecond Trimester 0.200-3.000 uU/mLThird Trimester 0.300-3.000 uU/mLReferences: 1. Cabrera L, Flash M, Pasquale EK, et al. Management of Thyroid Dysfunction during and : An Endocrine Society Clinical Practice Guideline. J Clin Endocrinol Metab, 2012:97:4629-6334. 2. Sam VALENZUELA. Overview of thyroid disease in . UpToDate. 2016. Accessed on December 08, 2015. Performed By: #### T SH, FREET3, FT4, HBA1C, MICRO, TRAB ####[facility] [address] [place], [place] [phone] TSH Receptor Ab.on 7 TBI 2.6 U/L High <1.0 [facility] Comment on above: Result Comment: This test was developed and its performance characteristics determined by [facility]'s Mele Monsivais [facility] Pathology and Laboratory Medicine [place] ([facility]).It has not been cleared or approved by the FDA. [facility] is regulated under CLIA as qualified to perform high-complexity testing.This test is used for clinical purposes. It should not be regarded as investigational or for research. Performed By: #### T SH, FREET3, FT4, HBA1C, MICRO, TRAB ####[facility] [place], [place] [phone] TSI 847 % Normal High <150 [facility] Comment on above: Performed By: #### T SH, FREET3, FT4, HBA1C, MICRO, TRAB ####[facility] [address] [place], [place] [phone] Vital Signs Date Time Vital Sign Value Performing Clinician Facility 11-19-2022 11:30-0400 Body height 154.94 cm Debibe Le Other [employer] Other 11-19-2022 11:30-0400 Body mass index (BMI) [Ratio] 24.37 kg/m2 Debbie Le Other [employer] Other 11-19-2022 11:30-0400 Body temperature 97.8 [degF] Debbie Le Other [employer] Other 11-19-2022 11:30-0400 Body weight 58.51 kg Debbie Le Other [employer] Other 11-19-2022 11:30-0400 Respiratory rate 18 /min Debbie Le Other [employer] Other 11-19-2022 11:30-0400 SaO2% (BldA) [Mass fraction] 97 % Debbie Le Other [employer] Other Encounters Encounter Date Encounter Type Care Provider Facility Start: 09-02-2023 End: 09-02-2023 ambulatory Alonzo Castañeda Facility:[facility] Start: 03-09-2023 End: 03-09-2023 Emergency department patient visit Tatiana Pink Facility:[facility] Start: 11-19-2022 End: 11-19-2022 ambulatory Debbie Le Other [facility] [employer] Other Start: 11-19-2022 Office outpatient ne w 20 minutes Debbie Le [facility] Antonio Start: 09-27-2022 Encounter for genera l adult medical examination without abnormal findings DR TATIANA PINK . [facility] Start: 09-19-2022 End: 09-20-[address] TATIANA PINK . Facility: Start: 09-19-2022 End: 09-20-2022 Encounter for general adult medical examination without abnormal findings DR TATIANA PINK . Facility: Start: 10-10-2021 End: 10-10-[address] FABIAN SIMON . Facility: Start: 02-09-2018 End: 02-09-2018 Patient encounter AKASH Aguilera [place] [facility] Start: 08-06-2017 End: 08-07-2017 [facility] Start: 05-06-2017 Ambulatory REVITAL GORODE CANDIDA LOZANO [facility] Start: 05-06-2017 End: 05-06-2017 Ambulatory ELBA KING (FEL) [facility] Procedures Date Procedure Procedure Detail Performing Clinician Start: 02-09-2018 DISCHARGE PATIENT JONATHAN VALENCIA Start: 02-09-2018 BEDREST AKASH ONTIVEROS Start: 02-09-2018 Continuous pulse oximetry AKASH VALENCIA Start: 02-09-2018 NEURO/VASCULAR CHECKS Jennifer VALENCIA Start: 02-09-2018 NURSING COMMUNICATION Jennifer VALENCIA Start: 02-09-2018 INITIATE OXYGEN THER APY PROTOCOL AKASH VALENCIA Start: 02-09-2018 NOTIFY PHYSICIAN (SPECIFY) AKASH VALENCIA Start: 02-09-2018 POC UR-QUAL Jennifer VALENCIA Start: 02-09-2018 POCT GLUCOSE AKASH ONTIVEROS Start: 02-09-2018 PULSE OXIMETRY SPOT CHECK AKASH VALENCIA Start: 02-09-2018 VITAL SIGNS AKASH ROSALESHORACIO Start: 08-06-2017 POC GLUCOSE FINGERSTICK AKASH ISLASHORACIO Start: 08-06-2017 POCT GLUCOSE AKASH ROSALESHORACIO Start: 08-06-2017 POC GLUCOSE FINGERSTICK AKASH ISLASHORACIO Start: 08-06-2017 DISCHARGE PATIENT JONATHAN VALENCIA Start: 08-06-2017 POC GLUCOSE FINGERSTICK AKASH ISLASHORACIO Start: 08-06-2017 POCT GLUCOSE AKASH ROSALESHORACIO Start: 08-06-2017 DIET NPO, NOW AKASH ISLASMICHELETEvelio Start: 08-06-2017 FULL CODE AKASH ROSALESHORACIO Start: 08-06-2017 NOTIFY PHYSICIAN (SPECIFY) AKASHNANCY VALENCIA Start: 08-06-2017 REASON FOR NO MECHAN ICAL VTE PROPHYLAXIS AKASH [place] Start: 08-06-2017 VITAL SIGNS AKASH Li [place] Start: 08-06-2017 PATIENT STATUS (FROM ED OR OR/PROCEDURAL) AKASH [place] Start: 08-06-2017 IP CONSULT TO ORTHOP EDIC SURGERY AKASHNANCY VALENCIA Start: 08-06-2017 Radex hand minimum 3 views AKASH [place] Start: 08-06-2017 Radex wrist complete minimum 3 views AKASH ISLASHORACIO Start: 08-06-2017 TYPE AND SCREEN ANTONIO Razo [place] Start: 08-06-2017 TRAUMA PANEL AKASH Li [place] Start: 08-06-2017 IP CONSULT TO PLASTIC SURGERY AKASH VALENCIA Start: 08-06-2017 IP CONSULT TO TRAUMA SURGERY AKASHNANCY VALENCIA Payers Date Payer Category Payer Self-pay 2017 Unknown [id number] 2017 Unknown [id number] 1992 Unknown [id number] 1992 Unknown [id number] 1959 Unknown [id number] 1959 Unknown [id number] Unknown [id number] Social History Date Type Detail Facility Unknown if ever smoked [employer] Other Sex Assigned At Sex Assigned At Bir th [employer] Other History and physical note 09-03-2023 Note Date & Type Note Facility 09-03-2023 Note [id number] [facility] Clinical Note 09-02-2023 Note Date & Type Note Facility 09-02-2023 Note Patient Education Materials Foll ows: [facility] Evaluation note 11-19-2022 Note Date & Type Note Facility 11-19-2022 Evaluation note Encounter Date Diagnosis Assessment Notes October, Hay fever (ICD-10 - J30.1) Discussed with patient exam is consistent with seasonal allergies, allergic conjunctivitis. Will treat with 80 mg of Kenalog given IM in office. Patient is advised to use Zyrtec or Claritin, Flonase regularly for the next 2 weeks or so. May also use Zaditor drops [id number] for eye symptoms. Follow-up with PCP if not gradually improving over the next 7 to 10 days, sooner if significantly worsening or persistent purulent yellow eye drainage throughout the day. Patient verbalized understanding of treatment plan. [employer] Other History general Narrative - Reported 08-21-2014 Note Date & Type Note Facility 08-21-2014 History general N arrative - Reported Type Medical History DM1 Surgical History D& C X'S 1 Surgical History ORAL SURGERY -WISDOM TEETH Hospitalization History MULTIPLE DKA - [facility] 08/2014 [employer] Other Summary Purpose Family History No Family History Records FoundNo Family History Records FoundNo Family History Records FoundNo Family History Records FoundNo Family History Records Found Advance Directives No Advanced Directives Records FoundNo Advanced Directives Records FoundNo Advanced Directives Records FoundNo Advanced Directives Records FoundNo Advanced Directives Records Found Additional Source Comments INFORMATION SOURCE (unrecogn ized section and content) DATE CREATED AUTHOR 12/09/2017 [facility] DATE CREATED AUTHOR AUTHOR'S ORGANIZ ATION 02/12/2018 [facility] DATE CREATED AUTHOR AUTHOR'S ORGANIZ ATION 09/28/2022 [facility] DATE CREATED AUTHOR AUTHOR'S ORGANIZ ATION 03/26/2023 [facility] DATE CREATED AUTHOR AUTHOR'S ORGANIZ ATION 09/03/2023 [facility] REASON FOR VISIT (unrecogniz ed section and content) EARS ARE HURTING AND EYE INF ECTION FOR RECORDS PERTAINING TO PATIENTS WHO ARE OR HAVE BEEN ENROLLED IN A CHEMICAL DEPENDENCY/SUBSTANCEABUSE PROGRAM, SOME INFORMATION MAY BE OMITTED. This clinical summary was aggregated from multiple sources. Caution should be exercised in using it in the provision of clinical care. This summary normalizes information from multiple sources, and as a consequence, information in this document may materially change the coding, format and clinical context of patient data. In addition, data may be omitted in some cases. CLINICAL DECISIONS SHOULD BE BASED ON THE PRIMARY CLINICAL RECORDS. [facility]. provides no warranty or guarantee of the accuracy or completeness of information in this document.
[2024-05-22 11:40] LABS: Basophils Absolute Auto 0.1 10^3/uL (0.0-0.1); Basophils Percent Auto 0.8 % (0.2-2.0); Eosinophils Absolute Auto 0.1 10^3/uL (0.0-0.7); Eosinophils Percent Auto 1.5 % (0.9-7.0); Hematocrit 44.4 % (36.0-48.0); Hemoglobin 14.9 g/dL (12.0-16.0); Immature Granulocytes Abs Auto 0.03 10^3/uL (0.00-0.03); Immature Granulocytes Pct Auto 0.3 % (0.0-0.5); Lymphocytes Absolute Auto 1.9 10^3/uL (1.2-3.8); Lymphocytes Percent Auto 20.1 % (20.5-60.0); Mean Corpuscular HGB Conc 33.6 g/dL (29.9-35.2); Mean Corpuscular Hemoglobin 32.5 pg (26.7-34.0); Mean Corpuscular Volume 96.7 fL (81.0-99.0); Mean Platelet Volume 9.5 fL (9.5-13.5); Monocytes Absolute Auto 0.7 10^3/uL (0.3-0.8); Monocytes Percent Auto 7.4 % (1.7-12.0); Neutrophils Absolute Auto 6.4 10^3/uL (1.4-6.5); Neutrophils Percent Auto 69.9 % (43.0-75.0); Platelet Count 295 10^3/uL (150-450); Red Blood Count 4.59 10^6/uL (4.20-5.40); Red Cell Distribution Width 12.6 % (11.0-15.0); White Blood Count 9.2 10^3/uL (4.0-11.0)
[2024-05-22 12:13] LABS: Estimated Average Glucose 303 mg/dL; Glycohemoglobin A1C 12.2 % (4.5-6.2)
[2024-05-22 12:46] LABS: Alanine Aminotransferase 23 U/L (14-59); Albumin Globulin Ratio 0.9; Albumin Level 3.6 g/dL (3.4-5.0); Alkaline Phosphatase 128 U/L (46-116); Anion Gap 13.5; Aspartate Amino Transferase 6 U/L (15-37); BUN Creatinine Ratio 16.9; Bilirubin Total 0.4 mg/dL (0.2-1.0); Calcium 8.9 mg/dL (8.5-10.1); Chloride 102 mmol/L (98-107); Chol HDL Ratio 3.1; Cholesterol 209 mg/dL (<=200); Estimated GFR (African America >60 (>=60 mL/min/1.73m^2); Estimated GFR (Non-African Ame >60 (>=60 mL/min/1.73m^2); Free T3 1.58 pg/mL (2.18-3.98); Globulin 3.9 g/dL; Glucose 343 mg/dL (74-106); HDL Cholesterol 67 mg/dL (40-60); Potassium 4.5 mmol/L (3.5-5.1); Sodium 138 mmol/L (136-145); Thyroid Stimulating Hormone 1.772 uIU/mL (0.358-3.740); Total Protein 7.5 g/dL (6.4-8.2); Triglycerides 339 mg/dL (<=150); VLDL CHOLESTEROL 67.8 mg/dL
== END 2024-05-22 11:24 | disposition home or self-care (01) ==
LOC: LAB 11:25
PROVIDERS: PCP Family Medicine; Visit Provider Family Medicine
DX: Z00.00 Encounter for general adult medical examination without abnormal findings (principal); E03.9 Hypothyroidism, unspecified
CPT/HCPCS: 36415; 80053; 80061; 83036; 83540; 84436; 84443; 84481; 85025

== ENCOUNTER 2024-11-23 17:18 | Outpatient (OUT) | payer OTHER, SELFPAY ==
--- NOTE | 2024-11-23 17:42 | MM_ITS ---
Patient Name: GERRI PENDLETON MR#: [id number] : 1990 Exam Date: 11/23/2024 Ordering Doctor: DR TATIANA JAMES . RADIOLOGY REPORT PROCEDURE: MM TOMOSYNTHESIS SCREENING BI COMPARISON: None. INDICATIONS: Well Adult, Z00.00 Calculator Name NCI Breast Cancer Risk Assessment Tool 5 Year Breast Cancer Risk Not Applicable. Lifetime Breast Cancer Risk Not Applicable. Personal Breast Cancer No Personal Ovarian Cancer No Treatments None Family Cancers None LOCATION: [facility] BREAST COMPOSITION: The breasts are extremely dense, which lowers the sensitivity of mammography. FINDINGS: RIGHT BREAST: No significant suspicious finding. LEFT BREAST: No significant suspicious finding. There is a 3.3 cm focal asymmetry in the retroareolar region of the left breast centrally. DIAGNOSTIC CATEGORY 0--INCOMPLETE: NEED ADDITIONAL IMAGING EVALUATION. RECOMMENDATIONS: ADDITIONAL MAMMOGRAPHIC VIEWS REQUIRED: LEFT BREAST - spot compressed views of the left breast with ultrasound if necessary ULTRASOUND: LEFT BREAST PLEASE NOTE: A NORMAL MAMMOGRAM DOES NOT EXCLUDE THE POSSIBILITY OF BREAST CANCER. A CLINICALLY SUSPICIOUS PALPABLE LUMP SHOULD BE BIOPSIED. Dictated by: Harrison Syed MD on 11/24/2024 at 12:42 Approved by: Harrison Syed MD on 11/24/2024 at 12:46
== END 2024-11-23 17:19 | disposition home or self-care (01) ==
LOC: MAMMO 17:20
PROVIDERS: PCP Family Medicine; Visit Provider Family Medicine
DX: Z00.00 Encounter for general adult medical examination without abnormal findings (principal); R92.8 Other abnormal and inconclusive findings on diagnostic imaging of breast; Z12.31 Encounter for screening mammogram for malignant neoplasm of breast
CPT/HCPCS: 77063; 77067